=== PATIENT | female | born 1955 | race Caucasian/White ===

== ENCOUNTER → 2017-12-09 | Outpatient (CLI) | payer OTHER ==
[~2017-12-09] MED LIST: ADVIN10/60 INH; AMLO10TA2 PO; ASPI325T4 PO; ATOR-26 PO; CARV25TA2 PO; INSU3INJ3 SC; IPRA1AER2 INH; LISI-726 PO; METF-384 PO; NVLG SQ; OXGN; POTA-74 PO; PRD20 PO; TORS20TA3 PO
--- NOTE | 2017-12-09 09:36 | DIAGNOSTIC IMAGING REPORT ---
CT OF THE CHEST WITHOUT IV CONTRAST CLINICAL HISTORY: Follow-up pulmonary nodule. COMPARISON STUDY: Chest CT January 07, 2012 and August 27, 2017 and chest radiograph October 11, 2017. CT DOSE: 1199.27 mGy.cm TECHNIQUE: Axial images of the chest were obtained without IV contrast. Images were reviewed in the axial, sagittal, and coronal planes. IV contrast was not administered for this examination. A dose lowering technique was utilized adhering to the principles of ALARA. FINDINGS: No enlarged axillary, hilar or mediastinal lymph nodes are noted. The prominent lymph nodes shown on CT of August 27, 2017 have decreased in size. The heart is mildly enlarged. Extensive coronary artery calcification is present. Central airways are patent. There is no pneumothorax or pleural effusion. Bandlike right upper lobe opacities reflect atelectasis. There is mild upper lobe predominant paraseptal and centrilobular emphysema. The 1 cm right middle lobe opacity shown on exam of August 27, 2017 has resolved. Therefore, this was infectious or inflammatory. There are no suspicious pulmonary nodules. Bony thorax is unremarkable. Gallstones are noted within the gallbladder. There are bilateral adrenal adenomas. IMPRESSION: 1. Resolution of the previously described 1 cm right middle lobe opacity shown on CT of August 27, 2017. Therefore, this was infectious or inflammatory. 2. No suspicious findings within the chest. 3. Band-like right upper lobe opacities which favor atelectasis. 4. Moderate cardiomegaly. Extensive coronary artery calcification. 5. Mild emphysema. Electronically signed by: Francisco J Grayson M.D. 12/09/2017 9:35 AM Dictated Date/Time: 12/09/2017 9:22 AM
== END | disposition home or self-care (01) ==
LOC: C.CTS 09:07
PROVIDERS: ATTEND Physician Assistant
DX: R91.1 Solitary pulmonary nodule (principal); J43.9 Emphysema, unspecified; I25.10 Atherosclerotic heart disease of native coronary artery without angina pectoris; R93.8 Abnormal findings on diagnostic imaging of other specified body structures

== ENCOUNTER → 2017-12-09 | Outpatient (CLI) | payer OTHER ==
[2017-12-09 10:15] LABS: HEMATOCRIT 40.2 % (37-47); HEMOGLOBIN 13.7 g/dL (12.0-16.0)
--- NOTE | 2017-12-16 07:36 | CODING QUERY MEDICAL NECESSITY ---
CQTREATMENT RENDERED WITHOUT A DIAGNOSIS To promote full compliance with coding requirements relating to patient care, physician participation is requested in all cases of plumbing instructor uncertainty. Please assist us with providing a diagnosis/symptom for the test(s) below: A diagnosis/symptom was not documented on your Order. A valid diagnosis/symptom is required to bill all insurances. Please remember that we are unable to code a diagnosis of rule out, probable, possible, questionable, or suspected. Tests that require a diagnosis: DOS 12/09/17 HEMOGLOBIN TEST Provider Signature: Date: Thank you Ana Harris Userlike Live Chat Information Management Once completed, please kindly fax back to [phone] For questions please call [phone]
== END | disposition home or self-care (01) ==
LOC: C.LAB 09:29
PROVIDERS: ATTEND Nurse Practitioner Family
DX: G47.34 Idiopathic sleep related nonobstructive alveolar hypoventilation (principal); J96.02 Acute respiratory failure with hypercapnia; G47.33 Obstructive sleep apnea (adult) (pediatric)

== ENCOUNTER 2019-11-11 09:46 | Inpatient (IN) ==
[2019-11-11] MEDS ORDERED: CEFEPIME 2,000 MG/20 ML VIAL IV STA (10:33)
[2019-11-11] MEDS ORDERED: methylPREDNISolone 125 MG/2 ML VIAL IV STA (10:34)
[2019-11-11] MEDS ORDERED: MAGNESIUM SULFATE / D5W 1 GM/100 ML BAG IV SCH (10:36)
[2019-11-11] MEDS ORDERED: ACETAMINOPHEN 500 MG TAB PO STA (10:38)
[2019-11-11] MEDS ORDERED: ALBUTEROL HFA 8 GM INHALER INH ONE (10:43)
[2019-11-11] MEDS ORDERED: SODIUM CHLORIDE 0.9% 1000ML 1,000 ML IV SCH (10:45)
--- NOTE | 2019-11-11 10:52 | Emergency Department Note ---
Impression & Plan Acute exacerbation of chronic obstructive pulmonary disease (COPD), Fever, Hypomagnesemia ED Provider Note Provider: Jerome Hall MD DATE OF SERVICE: 11/11/2019 CHIEF COMPLAINT: Shortness of breath HISTORY OF PRESENT ILLNESS: Patient is a 64-year-old female with a past medical history of COPD, diabetes, hypertension presenting today stating that she woke this morning and she feels short of breath. Patient denies significant recent trauma of the last day or 2 as well as any fevers. Is febrile upon arrival. Denies take anything prior to arrival. Patient states she did use her morning medications and inhalers. Patient states that she believes she may have a COPD exacerbation. Denies recent travel or sick exposure. Denies significant pain at this time. Endorses a dry cough. Denies any nausea vomiting or abdominal discomfort at this time. Patient denies any new leg swelling. Patient denies any sensation abnormalities out of baseline at this time. Denies any focal weakness or headache. REVIEW OF SYSTEMS: A total of 10 review of systems was obtained and negative except as stated above in the HPI. PAST MEDICAL HISTORY: As noted above MEDICATIONS: Reviewed home medication list SOCIAL HISTORY: Patient is a smoker, lives at home PHYSICAL EXAM: GENERAL: alert and oriented in no acute distress on stretcher but appears fatigued Head: normocephalic and atraumatic EYES: No injection, discharge or icterus. NECK: Trachea midline. Supple. ENT: Mucous membranes pink and moist. Pharynx without erythema or exudate. LUNGS: Airway patent. No retractions. Breath sounds diminished with expiratory wheeze HEART: Regular rate and rhythm. No chest wall tenderness ABDOMEN: Soft and non-tender, without guarding or rebound. SKIN: Acyanotic, warm, dry, without rashes EXTREMITIES: Without swelling, tenderness or deformity NEUROLOGICAL: No focal deficits. No aphasia. No facial droop or slurred speech. EK bpm normal sinus rhythm with a right bundle branch block. No PVCs or PACs. No acute ST segment elevation is notable. Precordial and inferior T wave inversions are notable. Compared to October 11, 2017 the bundle branch and T wave inversions appear new. CONTINUOUS CARDIAC MONITORING: was ordered and showed a heart rate of 96 bpm in sinus tachycardia Patient's hypertension was referred to the hospitalist HOSPITAL COURSE: 1035 Patient was first seen and H&P performed. 1235 Patient reassessed and updated. Patient was resting in bed and just provided a urine sample. Discussed plan of care 1257 discussed with [facility] hospitalist team, Elissa Kenny PAC 1310 reassessed the patient updated on negative coronavirus testing, DuoNeb ordered. Given a Diet Coke. Patient's laboratory studies and imaging reviewed. Differential includes Viral syndrome, otitis, pharyngitis, pneumonia, influenza, meningitis, urinary tract infection, sepsis, bacteremia, COPD exacerbation, ACS, PE, gastrointestinal maladies as well as other pathologies. IMPRESSION/MEDICAL DECISION MAKING: Patient presents short of breath with a fever here. Expiratory wheeze appreci ated. Believe likely a COPD exacerbation with a fevers concerning for possible overlying infection. X-rays obtained to help look for pneumonia as well as basic laboratory studies, lactate, and culture. Given albuterol inhaler, magnesium, Solu-Medrol here as well as some IV fluid. Lower suspicion for acute CHF exacerbation at this time. Denies any numbness or tingling on my evaluation here. Doubt acute CVA. No travel or exposure but given fever respiratory symptoms and the current pandemic coronavirus testing was ordered. Maintained on airborne precautions here. Slight leukocytosis 11.9. VBG unremarkable. No signs of significant renal dysfunction, moderate hypomagnesemia noted. Lactate is elevated. Procalcitonin elevated. No significant LFT abnormality or platelet abnormality. Still awaiting a urine sample and the rapid COVID is pending. EKG with no bundle branch. Troponin is undetectable. Coronavirus test come back negative. Urinalysis not that impressive for infection. Do not see clear evidence of symptoms consistent with anaplasmosis. Concern for possible occult infection versus underlying pneumonia. I lower suspicion strep is acute PE. Given a DuoNeb treatment again already empirically given a dose of cefepime. Discussed with the hospitalist team for further monitoring observation in the inpatient setting. DIAGNOSIS: Fever, acute COPD exacerbation, hypomagnesemia DISPOSITION: Hospitalist will evaluate Patient was agreeable with this plan. Past Med/Surg History Family History (Updated 02/15/18 @ 09:02 by Amrita Swenson RN) Mother Family history of diabetes mellitus Sister Family history of diabetes mellitus Brother Family history of diabetes mellitus Social History Smoking Status: Current every day smoker Tobacco Type: Cigarettes Cigarettes Per Day: 20 CIG; Second Hand Exposure: No; Hx Alcohol Use: No Hx Substance Use: No Preferred Language: Yoruba Communication Ability: Effective Residential Door Unit Installer Required: No Beliefs That Will Affect Care: None Current Living Situation: Family Feels Safe at Home: Yes Allergies Allergies Allergy/AdvReac Type Severity Reaction Status Date / Time No Known Allergies Allergy NONE Verified 11/11/19 10:39 Home Meds Home Medications Medication Instructions Recorded Confirmed amlodipine 10 mg tablet 10 mg PO QAM 12/14/17 11/11/19 aspirin 325 mg tablet,delayed 325 mg PO QAM 12/14/17 11/11/19 release atorvastatin 80 mg tablet 80 mg PO HS 12/14/17 11/11/19 carvedilol 25 mg tablet 25 mg PO BID 12/14/17 11/11/19 insulin aspart U-100 100 unit/mL 30 units SQ QAM ml 12/14/17 11/11/19 subcutaneous solution insulin aspart U-100 100 unit/mL 30 units SQ QDD ml 12/14/17 11/11/19 subcutaneous solution ipratropium 20 mcg-albuterol 100 2 puffs INH Q4H PRN gm 12/14/17 11/11/19 mcg/actuation mist for inhalation lisinopril 20 mg tablet 40 mg PO QAM 12/14/17 11/11/19 metformin 1,000 mg tablet 1,000 mg PO BID 12/14/17 11/11/19 potassium chloride 10 mEq 10 meq PO QAM 12/14/17 11/11/19 capsule,extended release torsemide 20 mg tablet 20 mg PO QAM 12/14/17 11/11/19 insulin detemir U-100 100 unit/mL 26 units SQ HS ml 12/27/17 11/11/19 subcutaneous solution clopidogrel 75 mg tablet 75 mg PO QAM 03/06/19 11/11/19 ezetimibe 10 mg PO QAM 11/11/19 11/11/19 Previous Rx's Medication Instructions Recorded tiotropium 2.5 mcg-olodaterol 2.5 See Rx Instructions .ROUTE 09/20/19 mcg/actuation mist for inhalation .COMPLEX #1 inhaler Results & Data (ED) Vital Signs Vital Signs - 24 hr 11/11/19 09:53 11/11/19 10:47 11/11/19 10:48 Temperature 39.5 C H Temperature Source Oral Pulse Rate 106 H Pulse Rate [Left Apical] Pulse Rate from SpO2 Sensor Respiratory Rate 22 Respiratory Effort / Characteristics Spontaneous Blood Pressure 120/52 L Blood Pressure Mean 74 Pulse Oximetry 94 Oxygen Delivery Method Room Air Room Air Room Air Oxygen Flow Rate Sepsis Recent Fever Within 48 Hours Yes Sepsis New/Unexplained Change in Mental Status No Sepsis Action Taken by Nursing No Action Required 11/11/19 11:00 11/11/19 11:52 11/11/19 12:00 Temperature Temperature Source Pulse Rate 101 H Pulse Rate [Left Apical] Pulse Rate from SpO2 Sensor 101 H Respiratory Rate 15 Respiratory Effort / Characteristics Non-Labored Non-Labored Spontaneous Blood Pressure 148/69 H Blood Pressure Mean 90 Pulse Oximetry 90 92 88 L Oxygen Delivery Method Room Air Room Air Oxygen Flow Rate Sepsis Recent Fever Within 48 Hours Sepsis New/Unexplained Change in Mental Status Sepsis Action Taken by Nursing 11/11/19 12:02 11/11/19 12:53 11/11/19 13:00 Temperature 37.8 C H Temperature Source Oral Pulse Rate 97 H Pulse Rate [Left Apical] Pulse Rate from SpO2 Sensor 97 H Respiratory Rate 20 20 Respiratory Effort / Characteristics Non-Labored Spontaneous Blood Pressure 140/71 Blood Pressure Mean 101 Pulse Oximetry 91 98 Oxygen Delivery Method Nasal Cannula Oxygen Flow Rate 2 Sepsis Recent Fever Within 48 Hours Sepsis New/Unexplained Change in Mental Status Sepsis Action Taken by Nursing 11/11/19 13:01 11/11/19 13:29 Temperature Temperature Source Pulse Rate 94 H Pulse Rate [Left Apical] 88 Pulse Rate from SpO2 Sensor 95 H Respiratory Rate 23 18 Respiratory Effort / Characteristics Non-Labored Spontaneous Blood Pressure 125/62 Blood Pressure Mean 77 Pulse Oximetry 98 96 Oxygen Delivery Method Nasal Cannula Nasal Cannula Oxygen Flow Rate 2 2 Sepsis Recent Fever Within 48 Hours Sepsis New/Unexplained Change in Mental Status Sepsis Action Taken by Nursing Laboratory Data Result diagrams: 11/11/19 11:13 11/11/19 11:13 Lab Results 11/11/19 11/11/19 11/11/19 Range/Units 11:13 11:13 11:13 WBC 11.92 H (4.8-10.8) K/uL RBC 4.60 (4.2-5.4) M/uL Hgb 13.8 (12.0-16.0) g/dL Hct 40.3 (37-47) % MCV 87.6 (80-100) fL MCH 30.0 (25-34) pg MCHC 34.2 (32-36) g/dL RDW Std Deviation 48.5 H (36.4-46.3) fL RDW Coeff of Rasheeda 15.1 H (11.5-14.5) % Plt Count 222 (130-400) K/uL MPV 10.2 (7.4-10.4) fL Immature Gran % (Auto) 0.2 % Neut % (Auto) 89.8 % Lymph % (Auto) 3.2 % [place] % (Auto) 5.7 % Eos % (Auto) 0.8 % Baso % (Auto) 0.3 % Neut # (Auto) 10.72 H (1.4-6.5) K/uL Lymph # (Auto) 0.38 L (1.2-3.4) K/uL [place] # (Auto) 0.68 H (0.11-0.59) K/uL Eos # (Auto) 0.09 (0-0.5) K/uL Baso # (Auto) 0.03 (0-0.2) K/uL Immature Gran # (Auto) 0.02 (0.00-0.02) K/uL PT 11.7 (9.0-12.0) Seconds INR 1.1 (0.9-1.1) APTT 26.7 (21.0-31.0) Seconds PTT Ratio 1.0 VBG pH (7.36-7.41) VBG pCO2 (38-50) mmHg VBG pO2 mmHg VBG HCO3 mmol/L VBG O2 Saturation % VBG Base Excess mEq/L Barometric Pressure mm/Hg Sodium 135 L (136-145) mmol/L Potassium 3.6 (3.5-5.1) mmol/L Chloride 99 (98-107) mmol/L Carbon Dioxide 29 (21-32) mmol/L Anion Gap 7.0 (3-11) BUN 13 (7-18) mg/dl Creatinine 0.77 (0.6-1.2) mg/dl Est Cr Clr Drug Dosing 109.8 ml/min Est GFR ( Amer) 95.9 Est GFR (Non-Af Amer) 82.8 BUN/Creatinine Ratio 16.2 (10-20) Glucose 139 H (70-99) mg/dl Lactate (0.4-2.0) mmol/L Calcium 8.4 L (8.5-10.1) mg/dl Magnesium 1.4 L (1.8-2.4) mg/dl Total Bilirubin 0.6 (0.2-1) mg/dl AST 6 L (15-37) U/L ALT 24 (12-78) U/L Alkaline Phosphatase 115 (45-117) U/L Troponin I < 0.015 (0-0.045) ng/ml Total Protein 7.3 (6.4-8.2) gm/dl Albumin 3.4 (3.4-5.0) gm/dl Globulin 3.9 (2.5-4.0) gm/dl Albumin/Globulin Ratio 0.9 (0.9-2) Procalcitonin (0-0.5) ng/ml TSH 1.940 (0.300-4.500) uIu/ml Urine Color Urine Appearance (Clear) Urine pH (4.5-7.5) Ur Specific [place] (1.000-1.030) Urine Protein (Negative) Urine Glucose (UA) (Negative) Urine Ketones (Negative) Urine Blood (Negative) Urine Nitrite (Negative) Urine Bilirubin (Negative) Urine Urobilinogen (Negative) Ur Leukocyte Esterase (Negative) Urine WBC (Auto) (0-5) /hpf Urine RBC (Auto) (0-4) /hpf U Hyaline Cast (Auto) (0-5) /lpf U Epithel Cells (Auto) (0-5) /lpf Urine Bacteria (Auto) (Negative) COVID-19 PCR (Negative) SARS-CoV-2 RNA (RT-PCR) 11/11/19 11/11/19 11/11/19 Range/Units 11:13 11:13 11:13 WBC (4.8-10.8) K/uL RBC (4.2-5.4) M/uL Hgb (12.0-16.0) g/dL Hct (37-47) % MCV (80-100) fL MCH (25-34) pg MCHC (32-36) g/dL RDW Std Deviation (36.4-46.3) fL RDW Coeff of Rasheeda (11.5-14.5) % Plt Count (130-400) K/uL MPV (7.4-10.4) fL Immature Gran % (Auto) % Neut % (Auto) % Lymph % (Auto) % [place] % (Auto) % Eos % (Auto) % Baso % (Auto) % Neut # (Auto) (1.4-6.5) K/uL Lymph # (Auto) (1.2-3.4) K/uL [place] # (Auto) (0.11-0.59) K/uL Eos # (Auto) (0-0.5) K/uL Baso # (Auto) (0-0.2) K/uL Immature Gran # (Auto) (0.00-0.02) K/uL PT (9.0-12.0) Seconds INR (0.9-1.1) APTT (21.0-31.0) Seconds PTT Ratio VBG pH 7.44 H (7.36-7.41) VBG pCO2 44 (38-50) mmHg VBG pO2 43 mmHg VBG HCO3 30 mmol/L VBG O2 Saturation 77.0 % VBG Base Excess 4.8 mEq/L Barometric Pressure 735.3 mm/Hg Sodium (136-145) mmol/L Potassium (3.5-5.1) mmol/L Chloride (98-107) mmol/L Carbon Dioxide (21-32) mmol/L Anion Gap (3-11) BUN (7-18) mg/dl Creatinine (0.6-1.2) mg/dl Est Cr Clr Drug Dosing ml/min Est GFR ( Amer) Est GFR (Non-Af Amer) BUN/Creatinine Ratio (10-20) Glucose (70-99) mg/dl Lactate 2.3 H* (0.4-2.0) mmol/L Calcium (8.5-10.1) mg/dl Magnesium (1.8-2.4) mg/dl Total Bilirubin (0.2-1) mg/dl AST (15-37) U/L ALT (12-78) U/L Alkaline Phosphatase (45-117) U/L Troponin I (0-0.045) ng/ml Total Protein (6.4-8.2) gm/dl Albumin (3.4-5.0) gm/dl Globulin (2.5-4.0) gm/dl Albumin/Globulin Ratio (0.9-2) Procalcitonin 1.45 H (0-0.5) ng/ml TSH (0.300-4.500) uIu/ml Urine Color Urine Appearance (Clear) Urine pH (4.5-7.5) Ur Specific [place] (1.000-1.030) Urine Protein (Negative) Urine Glucose (UA) (Negative) Urine Ketones (Negative) Urine Blood (Negative) Urine Nitrite (Negative) Urine Bilirubin (Negative) Urine Urobilinogen (Negative) Ur Leukocyte Esterase (Negative) Urine WBC (Auto) (0-5) /hpf Urine RBC (Auto) (0-4) /hpf U Hyaline Cast (Auto) (0-5) /lpf U Epithel Cells (Auto) (0-5) /lpf Urine Bacteria (Auto) (Negative) COVID-19 PCR (Negative) SARS-CoV-2 RNA (RT-PCR) 11/11/19 11/11/19 11/11/19 Range/Units 11:49 11:49 12:45 WBC (4.8-10.8) K/uL RBC (4.2-5.4) M/uL Hgb (12.0-16.0) g/dL Hct (37-47) % MCV (80-100) fL MCH (25-34) pg MCHC (32-36) g/dL RDW Std Deviation (36.4-46.3) fL RDW Coeff of Rasheeda (11.5-14.5) % Plt Count (130-400) K/uL MPV (7.4-10.4) fL Immature Gran % (Auto) % Neut % (Auto) % Lymph % (Auto) % [place] % (Auto) % Eos % (Auto) % Baso % (Auto) % Neut # (Auto) (1.4-6.5) K/uL Lymph # (Auto) (1.2-3.4) K/uL [place] # (Auto) (0.11-0.59) K/uL Eos # (Auto) (0-0.5) K/uL Baso # (Auto) (0-0.2) K/uL Immature Gran # (Auto) (0.00-0.02) K/uL PT (9.0-12.0) Seconds INR (0.9-1.1) APTT (21.0-31.0) Seconds PTT Ratio VBG pH (7.36-7.41) VBG pCO2 (38-50) mmHg VBG pO2 mmHg VBG HCO3 mmol/L VBG O2 Saturation % VBG Base Excess mEq/L Barometric Pressure mm/Hg Sodium (136-145) mmol/L Potassium (3.5-5.1) mmol/L Chloride (98-107) mmol/L Carbon Dioxide (21-32) mmol/L Anion Gap (3-11) BUN (7-18) mg/dl Creatinine (0.6-1.2) mg/dl Est Cr Clr Drug Dosing ml/min Est GFR ( Amer) Est GFR (Non-Af Amer) BUN/Creatinine Ratio (10-20) Glucose (70-99) mg/dl Lactate (0.4-2.0) mmol/L Calcium (8.5-10.1) mg/dl Magnesium (1.8-2.4) mg/dl Total Bilirubin (0.2-1) mg/dl AST (15-37) U/L ALT (12-78) U/L Alkaline Phosphatase (45-117) U/L Troponin I (0-0.045) ng/ml Total Protein (6.4-8.2) gm/dl Albumin (3.4-5.0) gm/dl Globulin (2.5-4.0) gm/dl Albumin/Globulin Ratio (0.9-2) Procalcitonin (0-0.5) ng/ml TSH (0.300-4.500) uIu/ml Urine Color Yellow Urine Appearance Clear (Clear) Urine pH 5.0 (4.5-7.5) Ur Specific [place] 1.013 (1.000-1.030) Urine Protein Negative (Negative) Urine Glucose (UA) Negative (Negative) Urine Ketones Negative (Negative) Urine Blood Negative (Negative) Urine Nitrite Negative (Negative) Urine Bilirubin Negative (Negative) Urine Urobilinogen Negative (Negative) Ur Leukocyte Esterase Trace H (Negative) Urine WBC (Auto) 5-10 H (0-5) /hpf Urine RBC (Auto) 5-10 H (0-4) /hpf U Hyaline Cast (Auto) 1-5 (0-5) /lpf U Epithel Cells (Auto) 20-30 H (0-5) /lpf Urine Bacteria (Auto) 1+ H (Negative) COVID-19 PCR NEGATIVE (Negative) SARS-CoV-2 RNA (RT-PCR) Cancelled Administered Medications Lactated Ringer's (Lr) 1,000 mls @ 999 mls/hr IV .Q1H1M ONE Stop: 11/11/19 13:47 Last Admin: 11/11/19 13:23 Dose: 999 mls/hr Documented by: [id number] Discontinued Medications Acetaminophen (Tylenol) 1,000 mg PO NOW STA Stop: 11/11/19 10:39 Last Admin: 11/11/19 11:35 Dose: 1,000 mg Documented by: [id number] Albuterol (Ventolin Hfa) 6 puffs INH NOW ONE Stop: 11/11/19 10:44 Last Admin: 11/11/19 11:37 Dose: 6 puffs Documented by: [id number] Albuterol (Duoneb) 12 ml NEB ONE ONE Stop: 11/11/19 13:15 Last Admin: 11/11/19 13:26 Dose: 12 ml Documented by: [id number] Sodium Chloride (Nss 1000ml) 1,000 mls @ 999 mls/hr IV .Q1H1M [place] Stop: 11/11/19 11:33 Last Infusion: 11/11/19 13:10 Dose: 0 mls/hr Documented by: [id number] Admin: 11/11/19 11:37 Dose: 999 mls/hr Documented by: [id number] Cefepime HCl (Maxipime) 2,000 mg in 20 mls @ 5 mls/min IV NOW STA; Protocol Stop: 11/11/19 10:36 Last Admin: 11/11/19 11:41 Dose: 5 mls/min Documented by: [id number] Magnesium Sulfate/Dextrose (Magnesium Sulfate / D5w) 1 gm in 100 mls @ 400 mls/hr IV Q15M [place] Stop: 11/11/19 10:50 Last Infusion: 11/11/19 12:51 Dose: 0 mls/hr Documented by: [id number] Admin: 11/11/19 11:41 Dose: 400 mls/hr Documented by: [id number] Magnesium Sulfate/Dextrose (Magnesium Sulfate / D5w) 1 gm in 100 mls @ 100 mls/hr IV NOW STA Stop: 11/11/19 13:03 Last Infusion: 11/11/19 13:02 Dose: 0 mls/hr Documented by: [id number] Admin: 11/11/19 12:52 Dose: 100 mls/hr Documented by: [id number] Methylprednisolone (Solumedrol) 60 mg IV NOW STA Stop: 11/11/19 10:35 Last Admin: 11/11/19 11:40 Dose: 60 mg Documented by: [id number] Discharge Plan Visit Data Chief Complaint: Shortness of Breath/Dyspnea Stated Complaint: SOB, LEG NUMBESS, COUGH ED Provider: Jerome Hall Discharge Problem: Acute exacerbation of chronic obstructive pulmonary disease (COPD), Fever, Hypomagnesemia Patient Disposition: Being Evaluated by Hospitalist Condition: Fair Forms Stand Alone Forms: [facility] [place] Prescriptions Prescriptions: No Action amlodipine 10 mg tablet 10 mg PO QAM RF: 0 aspirin 325 mg tablet,delayed release (DR/EC) 325 mg PO QAM RF: 0 atorvastatin 80 mg tablet 80 mg PO HS RF: 0 carvedilol 25 mg tablet 25 mg PO BID RF: 0 insulin aspart U-100 [Novolog U-100 Insulin aspart] 100 unit/mL solution 30 units SQ QAM RF: 0 insulin aspart U-100 [Novolog U-100 Insulin aspart] 100 unit/mL solution 30 units SQ QDD RF: 0 ipratropium-albuterol [Combivent Respimat] 20-100 mcg/actuation mist 2 puffs INH Q4H PRN (Reason: shortness of breath) RF: 0 lisinopril 20 mg tablet 40 mg PO QAM RF: 0 metformin 1,000 mg tablet 1,000 mg PO BID RF: 0 potassium chloride 10 mEq capsule, extended release 10 meq PO QAM RF: 0 torsemide 20 mg tablet 20 mg PO QAM RF: 0 insulin detemir U-100 [Levemir U-100 Insulin] 100 unit/mL solution 26 units SQ HS RF: 0 Stiolto Respimat 2.5-2.5 mcg/actuation mist See Rx Instructions .ROUTE .COMPLEX Qty: 1 RF: 5 clopidogrel [Plavix] 75 mg tablet 75 mg PO QAM RF: 0 ezetimibe 10 mg tablet 10 mg PO QAM RF: 0 Referrals Referrals: Jeremie Mcclellan DO [Primary Care Provider] - Discharge Problem: Fever Qualifiers: Fever type: unspecified Qualified Code(s): R50.9 - Fever, unspecified
[2019-11-11 11:31] LABS: Base Excess VBG 4.8 mEq/L; Hematocrit (blood only) 40.3 % (37-47); Hemoglobin 13.8 g/dL (12.0-16.0); Mean Corpuscular Hgb Conc 34.2 g/dL (32-36); Mean Corpuscular Volume 87.6 fL (80-100); Mean Platelet Volume 10.2 fL (7.4-10.4); Platelet Count 222 K/uL (130-400); RDW Coefficient of Variation 15.1 % (11.5-14.5); RDW Standard Deviation 48.5 fL (36.4-46.3); White Blood Count 11.92 K/uL (4.8-10.8); pH VBG 7.44 (7.36-7.41)
[2019-11-11 11:42] LABS: INR 1.1 (0.9-1.1); Partial Thromboplastin Time 26.7 Seconds (21.0-31.0); Prothrombin Time 11.7 Seconds (9.0-12.0)
[2019-11-11 11:54] LABS: Alanine Aminotransferase 24 U/L (12-78); Albumin Level 3.4 gm/dl (3.4-5.0); Aspartate Aminotransferase 6 U/L (15-37); BUN Creatinine Ratio 16.2 (10-20); Blood Urea Nitrogen 13 mg/dl (7-18); Calcium 8.4 mg/dl (8.5-10.1); Carbon Dioxide 29 mmol/L (21-32); Chloride 99 mmol/L (98-107); Creatinine Clr Calc Pharmacy 109.8 ml/min; Est GFR (African American) 95.9; Est GFR (Non-African American) 82.8; Glucose 139 mg/dl (70-99); Magnesium 1.4 mg/dl (1.8-2.4); Potassium 3.6 mmol/L (3.5-5.1); Sodium 135 mmol/L (136-145)
[2019-11-11 12:04] LABS: Albumin Globulin Ratio 0.9 (0.9-2); Alkaline Phosphatase 115 U/L (45-117); Bilirubin,Total 0.6 mg/dl (0.2-1); Globulin 3.9 gm/dl (2.5-4.0); Total Protein 7.3 gm/dl (6.4-8.2); Troponin I < 0.015 ng/ml (0-0.045)
[2019-11-11] MEDS ORDERED: MAGNESIUM SULFATE / D5W 1 GM/100 ML BAG IV STA (12:04)
[2019-11-11 12:16] LABS: Basophils # (auto) 0.03 K/uL (0-0.2); Basophils % (auto) 0.3 %; Eosinophils # (auto) 0.09 K/uL (0-0.5); Eosinophils % (auto) 0.8 %; Immature Granulocytes # (auto) 0.02 K/uL (0.00-0.02); Immature Granulocytes % (auto) 0.2 %; Lymphocytes # (auto) 0.38 K/uL (1.2-3.4); Lymphocytes % (auto) 3.2 %; Monocytes # (auto) 0.68 K/uL (0.11-0.59); Monocytes % (auto) 5.7 %; Neutrophils # (auto) 10.72 K/uL (1.4-6.5); Neutrophils % (auto) 89.8 %
--- NOTE | 2019-11-11 12:19 | XRay Report ---
XR chest 1V portable HISTORY: 64 years-old Female SEPSIS acute sepsis with shortness of breath COMPARISON: Chest CT 11/22/2018 TECHNIQUE: Portable AP view of the chest FINDINGS: Cardiac silhouette is mildly enlarged, unchanged. No pneumothorax, large pleural effusion or overt pu lmonary edema. Ill-defined bibasilar opacities are likely secondary to summation density/atelectasis. Degenerative changes of the shoulders and spine. IMPRESSION: Cardiomegaly without acute process. ACT 112: Negative or not required by law. The above report was generated using voice recognition software. It may contain grammatical, syntax o r spelling errors. Electronically signed by: Eliezer Lozano M.D. 11/11/2019 12:18 PM
[2019-11-11] MEDS ORDERED: LACTATED RINGER'S 1,000 ML IV ONE (12:47)
[2019-11-11 13:07] LABS: Appearance Urine Clear (Clear); Bacteria Urine Automated 1+ (Negative); Bilirubin Urine Negative (Negative); Blood Urine Negative (Negative); Color Urine Yellow; Epithelial Cell Urine Auto 20-30 /lpf (0-5); Glucose Urine UA Negative (Negative); Ketones Urine Negative (Negative); Leukocyte Esterase Urine Trace (Negative); Nitrite Urine Negative (Negative); Protein Urine Negative (Negative); Specific Gravity Urine 1.013 (1.000-1.030); Urobilinogen Urine Negative (Negative)
[2019-11-11] MEDS ORDERED: ALBUT/IPRATROP 3MG/0.5MG NEB 3 ML VIAL NEB ONE (13:14)
[2019-11-11] MEDS ORDERED: OPTIRAY 320 125ml IV PRN (15:06)
--- NOTE | 2019-11-11 15:13 | History & Physical Report ---
Date of Service November 11, 2019 Assessment & Plan (1) Sepsis: (2) Acute exacerbation of chronic obstructive pulmonary disease (COPD): This is a 64-year-old female with PMH of COPD with nocturnal hypoxemia, tobacco use disorder, moderate JEIMY, chronic diastolic heart failure, type 2 diabetes on insulin, dyslipidemia and other medical problems listed below who presents with worsening shortness of breath starting this morning and was found to meet sepsis criteria and have acute exacerbation of COPD. -Febrile at 39.5 with heart rate 106, leukocytosis of 11.9, lactic acid 2.3, procalcitonin 1.45 meeting sepsis criteria -No clear source of infection on CXR, UA. COVID-19 PCR negative. Will cover with empiric abx for now with ill-defined basilar opacities on CXR representing infxn vs viral URI exacerbation of COPD -Considered PE due to clinical presentation but CTA chest negative for PE. Evidence of extensive coronary artery calcifications -Follow blood cultures. Continue IV Solu-medrol 40mg Q8H, Duonebs, home inhalers, supplemental O2 as needed -Received 2L NSS in ED. Will not continue IV fluids due to stable BP at 126/62 and underlying heart failure -MRSA swab pending, trend lactate (3) Nocturnal hypoxemia: (4) Sleep apnea: BiPAP with 7 L O2 at bedtime (5) Hypomagnesemia: Given 2 g magnesium in ED. We will give an additional 2 g. Repeat mag in a.m. (6) Left carotid artery stenosis: Follows with [facility] [place] [facility] [place]. Repeat carotid doppler scheduled for 11/2019. Continue aspirin and plavix (7) Chronic diastolic (congestive) heart failure: Appears euvolemic. Continue torsemide, Coreg, Lisinopril (8) Diabetes mellitus, type 2: A1c of 8.1 in September 2019 -Hold home agents -Basal/bolus insulin per protocol while in-patient -BSG AC HS (9) Hypertension: Continue Coreg, Amlodipine and Lisinopril (10) Tobacco use disorder: Cessation encouraged (11) Hyperlipidemia: Continue statin DVT Ppx: SQ heparin Code status: FULL PCP: Eleuterio Dispo: Admitted to PCU. Plan to return home once medically stable. Patient seen in collaboration with Dr. Barron. Please see addendum. History of Present Illness Chief Complaint: Shortness of breath Primary Care Provider: Jeremie Mcclellan, DO This is a 64-year-old female with PMH of COPD with nocturnal hypoxemia, tobacco use disorder, moderate JEIMY, chronic diastolic heart failure, type 2 diabetes on insulin, dyslipidemia and other medical problems listed below who presents with worsening shortness of breath starting this morning. Patient states she has shortness of breath at baseline due to COPD and JEIMY but felt significantly more short of breath when she woke up this morning. Endorses dry cough and wheezing, which are close to her baseline, along with some lower extremity swelling. Has been taking all medications as scheduled. Denies any sick contacts, recent travel or known COVID exposure. Denies any fever or chills, although found to be febrile at 39.5 upon arrival. Denies any lightheadedness, headache, visual changes, chest pain, palpitations, hemoptysis, abdominal pain, nausea, vomiting, dysuria, diarrhea or constipation. No pain in lower extremities or history of blood clots. Allergies Allergy/AdvReac Type Severity Reaction Status Date / Time No Known Allergies Allergy NONE Verified 11/11/19 10:39 Home Medications Home Medications Medication Instructions Recorded Confirmed Type aspirin 325 mg tablet,delayed 325 mg PO QAM 12/14/17 11/11/19 History release atorvastatin 80 mg tablet 80 mg PO HS 12/14/17 11/11/19 History carvedilol 25 mg tablet 37.5 mg PO BID 12/14/17 11/11/19 History insulin aspart U-100 100 unit/mL 30 units SQ QAM ml 12/14/17 11/11/19 History subcutaneous solution insulin aspart U-100 100 unit/mL 30 units SQ QDD ml 12/14/17 11/11/19 History subcutaneous solution ipratropium 20 mcg-albuterol 100 2 puffs INH Q4H PRN gm 12/14/17 11/11/19 History mcg/actuation mist for inhalation lisinopril 20 mg tablet 40 mg PO QAM 12/14/17 11/11/19 History metformin 1,000 mg tablet 1,000 mg PO BID 12/14/17 11/11/19 History potassium chloride 10 mEq 10 meq PO QAM 12/14/17 11/11/19 History capsule,extended release torsemide 20 mg tablet 20 mg PO QAM 12/14/17 11/11/19 History insulin detemir U-100 100 unit/mL 26 units SQ HS 12/27/17 11/11/19 History subcutaneous solution clopidogrel 75 mg tablet 75 mg PO QAM 03/06/19 11/11/19 History tiotropium 2.5 mcg-olodaterol 2.5 See Rx Instructions .ROUTE 09/20/19 11/11/19 Rx mcg/actuation mist for inhalation .COMPLEX #1 inhaler amlodipine 5 mg PO DAILY 11/11/19 11/11/19 History ezetimibe 10 mg PO QAM 11/11/19 11/11/19 History Past Med/Surg History Medical History (Updated 11/11/19 @ 16:02 by Elissa Kenny PA-C) Chronic diastolic (congestive) heart failure Diabetes mellitus, type 2 Hyperlipidemia (Chronic) Hypertension Left carotid artery stenosis Nocturnal hypoxemia Osteoarthritis Sleep apnea Tobacco use disorder Surgical History History of bilateral carpal tunnel release (Deleted) History of (Resolved) History of carpal tunnel release RT/LEFT History of cataract surgery RT/LEFT History of section History of colonoscopy History of tooth extraction Family History Mother Family history of diabetes mellitus Sister Family history of diabetes mellitus Brother Family history of diabetes mellitus Social History Smoking Status: Current every day smoker Tobacco Type: Cigarettes Cigarettes Per Day: 1 pack; Second Hand Exposure: No; Do You Dip or Chew Tobacco: No; Tobacco Cessation Education Requested by Patient: No Hx Alcohol Use: No Hx Substance Use: No Preferred Language: Prydeinig Communication Ability: Effective Director Of Ancillary Services Required: No Beliefs That Will Affect Care: None Current Living Situation: Family Current Living Situation Comment: Lived in [facility], with two daughters Other Information That Helps Us Care for You: Yes Feels Safe at Home: Yes Safety Concerns: Feels Safe At This Time Review of Systems Review of Systems: At least ten systems reviewed and negative except as noted in the HPI. Physical Exam Physical Exam: General Appearance: WD/WN, vitals as above, NAD, sitting up in bed during neb treatment, morbidly obese, conversing easily Head: normocephalic, atraumatic Eyes: normal inspection, PERRL, conjunctivae normal, anicteric sclerae ENT: external ear and nose normal, oropharynx normal Neck: trachea midline, no thyromegaly, normal visual inspection Respiratory: normal respiratory effort, diminished lung sounds throughout, scattered expiratory wheezing, no rales. No accessory muscle use Cardiovascular: regular rate, rhythm, no murmur appreciated, normal peripheral pulses, pedal edema. Vessels: no JVD Chest: normal inspection of chest Abdomen/GI: normal bowel sounds, soft, nontender, no hepatosplenomegaly Extremities/Musculoskeletal: venous stasis hyperpigmentation, no cyanosis or clubbing, extremities motor strength 5/5 Neurologic: PERRL, EOMI, accommodation nl, no face palsy, no dysarthria, CN's II-XI intact bilaterally and moves all extremities Psychiatric: A+Ox3, euthymic affect Skin: no rashes, normal color, warm/dry. +healing lesion R anterior tibial surface Results & Data Results & Data ([facility]) Vital Signs (Past 12 Hours) Vital Signs Temp Pulse Pulse Resp BP Pulse Ox 11/11/19 14:50 95 H 22 126/62 99 11/11/19 14:00 22 99 11/11/19 13:31 95 H 22 126/62 99 11/11/19 13:29 88 18 96 11/11/19 13:01 94 H 23 125/62 98 11/11/19 13:00 20 98 11/11/19 12:53 37.8 C H 11/11/19 12:02 97 H 20 140/71 91 11/11/19 12:00 88 L 11/11/19 11:52 101 H 15 148/69 H 92 11/11/19 11:00 90 11/11/19 09:53 39.5 C H 106 H 22 120/52 L 94 Laboratory Results Short CBC 11/11/19 Range/Units 11:13 WBC 11.92 H (4.8-10.8) K/uL Hgb 13.8 (12.0-16.0) g/dL Hct 40.3 (37-47) % Plt Count 222 (130-400) K/uL BMP 11/11/19 11:13 Sodium 135 L Potassium 3.6 Chloride 99 Carbon Dioxide 29 BUN 13 Creatinine 0.77 Glucose 139 H Calcium 8.4 L Cardiac Enzymes 11/11/19 Range/Units 11:13 Troponin I < 0.015 (0-0.045) ng/ml Liver Function 11/11/19 Range/Units 11:13 Total Bilirubin 0.6 (0.2-1) mg/dl AST 6 L (15-37) U/L ALT 24 (12-78) U/L Alkaline Phosphatase 115 (45-117) U/L Albumin 3.4 (3.4-5.0) gm/dl Urine 11/11/19 Range/Units 12:45 Urine Color Yellow Urine Appearance Clear (Clear) Urine pH 5.0 (4.5-7.5) Ur Specific [place] 1.013 (1.000-1.030) Urine Protein Negative (Negative) Urine Glucose (UA) Negative (Negative) Diagnostic Findings CXR: IMPRESSION: Cardiomegaly without acute process. CTA chest: IMPRESSION: 1. No acute intrathoracic abnormality or evidence of pulmonary thromboembolic disease. 2. Cardiomegaly with extensive coronary artery calcifications. 3. Mild emphysema. Code Status & VTE Plan VTE Prophylaxis Plan VTE Prophylaxis will be ordered: Yes Supervising Physician Co-Signing Physician Notes I have seen and examined the patient and have discussed the case with the provider above. I agree with the assessment and plan as stated. 64 yo F smoker with known COPD presents with fever and worsening shortness of breath "that just started this morning." Denies feeling poorly prior to this, denies coughing, or recent sputum changes. Sedentary lifestyle; reports being on the computer for most of the day. Reports last COPD exacerbation was over 2 years ago. My physical exam was performed after breathing treatments, steroids and antibiotics had been started. She was obese, and not in distress. She had no conversational dyspnea and was not exhibiting increased respiratory effort. Lungs were clear to auscultation. Cardiac exam revealed S1/2 heard without m/g/r and no peripheral edema was present. She was euvolemic on exam. Her chest CT was negative for PE or infiltrates. Coronary calcifications were noted, which should be addressed by her PCP as outpatient. Agree with plan above including steroids, breathing treatments and broad spectrum antibiotics in the setting of possible developing sepsis, pending culture results (urine and blood) and clinical improvement. She denies all UTI symptoms. DO Anderson
--- NOTE | 2019-11-11 15:20 | CT Scan Report ---
CT angio chest PE protocol CT DOSE: 930.52 mGy.cm HISTORY: 64 years-old Female with PE. Acute shortness of breath TECHNIQUE: Multiple CTA images of the chest were obtained after the intravenous administration of 119 ml Optiray 320. Coronal and sagittal MIPS were obtained from the axial data set and were submitted for review. All measurements were obtained according to NASCET criteria. A dose lowering technique w as utilized adhering to the principles of ALARA. COMPARISON: Chest radiograph of same day, chest CT 12/09/2017 FINDINGS: CTA: Mild cardiomegaly.. 7 mm lymph node seen within the epicardial tissues anterior to the right atrium. Extensive coronary artery calcifications. Mural fibrofatty changes of the left ventricular apex sugge st prior myocardial infarction. Mixed plaque of the thoracic aorta without aneurysm or dissection. Th e pulmonary artery is opacified to level of the segmental branches. No filling defects identified to suggest thromboembolic disease. CT CHEST: Unremarkable thyroid. Mildly enlarged subcarinal lymph nodes, likely reactive. No pneumothorax, pleur al effusion or overt pulmonary edema. Mild emphysema with bronchial wall thickening. Mild bibasilar s ubsegmental atelectasis. There are no suspicious pulmonary nodules or masses identified. Central airw ays are patent. Bilateral adrenal adenomas redemonstrated, right greater than left. Soft tissues are within normal li mits. Degenerative changes of the shoulders and spine. IMPRESSION: 1. No acute intrathoracic abnormality or evidence of pulmonary thromboembolic disease. 2. Cardiomegaly with extensive coronary artery calcifications. 3. Mild emphysema. ACT 112: Negative or not required by law. The above report was generated using voice recognition software. It may contain grammatical, syntax o r spelling errors. Electronically signed by: Eliezer Lozano M.D. 11/11/2019 3:19 PM
[2019-11-11] MEDS ORDERED: ACETAMINOPHEN 325 MG TAB PO PRN (15:32)
[2019-11-11] MEDS ORDERED: POLYETHYLENE (MIRALAX) 17 GM PACK PO PRN (15:32)
[2019-11-11] MEDS ORDERED: GLUCOSE 40% GEL 15 GM TUBE PO PRN (15:32)
[2019-11-11] MEDS ORDERED: GLUCOSE 10 TABS/TUBE PO PRN (15:32)
[2019-11-11] MEDS ORDERED: CARBOHYDRATES FOR HYPOGLYCEMIA PO PRN (15:32)
[2019-11-11] MEDS ORDERED: DEXTROSE 50% 50 ML SYRINGE IV PRN (15:32)
[2019-11-11] MEDS ORDERED: GLUCAGON FOR INJ 1 MG VIAL SQ PRN (15:32)
[2019-11-11] MEDS ORDERED: CEFEPIME CONSULT ACTIVE PRN (15:50)
[2019-11-11] MEDS: ALBUT/IPRATROP 3MG/0.5MG NEB 3 ML VIAL NEB SCH ×3 (15:58→23:13)
[2019-11-11] MEDS: MAGNESIUM SULFATE / D5W 1 GM/100 ML BAG IV SCH ×2 (16:08→17:11)
[2019-11-11] MEDS ORDERED: PNEUMOCOCCAL ADMINISTRATION CHARGE ONE (16:38)
[2019-11-11] MEDS ORDERED: PNEUMOCOCCAL POLYSACCHARIDES 25 MCG/0.5 ML VIAL/SYR IM ONE (16:38)
[2019-11-11] MEDS: INSULIN ASPART 100 UNITS/ML 3 ML PEN SC SCH ×2 (17:12→21:05)
[2019-11-11] MEDS: methylPREDNISolone 40 MG in SYRINGE 0 ML IV SCH (19:30)
[2019-11-11] MEDS: CEFEPIME 2,000 MG in SYRINGE 7.5 ML IV SCH (19:31)
[2019-11-11] MEDS: ATORVASTATIN 40 MG TAB PO SCH (20:59)
[2019-11-11] MEDS ORDERED: ENOXAPARIN INJ 40 MG/0.4 ML SYR SQ SCH (21:00)
[2019-11-11] MEDS: carvediloL 25 MG TAB PO SCH (21:00)
[2019-11-11] MEDS ORDERED: INSULIN GLARGINE SOLOSTAR 100 UNITS/ML 3 ML PEN SC SCH (21:00)
[2019-11-11] MEDS: HEPARIN SOD 5,000 UNIT/0.5 ML VIAL SQ SCH (21:03)
[2019-11-12] MEDS: ALBUT/IPRATROP 3MG/0.5MG NEB 3 ML VIAL NEB SCH ×3 (03:16→11:29)
[2019-11-12] MEDS: CEFEPIME 2,000 MG in SYRINGE 7.5 ML IV SCH ×3 (04:00→19:51)
[2019-11-12] MEDS: methylPREDNISolone 40 MG in SYRINGE 0 ML IV SCH (04:00)
[2019-11-12] MEDS: HEPARIN SOD 5,000 UNIT/0.5 ML VIAL SQ SCH ×3 (06:22→21:15)
[2019-11-12] MEDS: UMECLIDINIUM/VILANTEROL 62.5/25MCG 7 PUFFS/INHALER INH SCH (08:26)
[2019-11-12] MEDS: carvediloL 25 MG TAB PO SCH ×2 (08:31→21:16)
[2019-11-12] MEDS: ASPIRIN 325 MG ECTAB PO SCH (08:31)
[2019-11-12] MEDS: INSULIN ASPART 100 UNITS/ML 3 ML PEN SC SCH ×4 (08:32→21:11)
[2019-11-12] MEDS: POTASSIUM CHLORIDE 10 MEQ TABCR PO SCH (08:34)
[2019-11-12] MEDS: CLOPIDOGREL BISULFATE 75 MG TAB PO SCH (08:34)
[2019-11-12] MEDS: AMLODIPINE BESYLATE 5 MG TAB PO SCH (08:34)
[2019-11-12] MEDS: TORSEMIDE 20 MG TAB PO SCH (08:34)
[2019-11-12] MEDS: lisinopriL 40 MG TAB PO SCH (08:34)
[2019-11-12] MEDS: EZETIMIBE 10 MG TABLET PO SCH (08:34)
[2019-11-12] MEDS ORDERED: INSULIN GLARGINE SOLOSTAR 100 UNITS/ML 3 ML PEN SC SCH (09:00)
[2019-11-12 10:27] LABS: Hematocrit (blood only) 39.4 % (37-47); Hemoglobin 13.5 g/dL (12.0-16.0); Mean Corpuscular Hemoglobin 30.3 pg (25-34); Mean Corpuscular Hgb Conc 34.3 g/dL (32-36); Mean Corpuscular Volume 88.5 fL (80-100); Mean Platelet Volume 10.4 fL (7.4-10.4); Platelet Count 241 K/uL (130-400); RDW Coefficient of Variation 15.1 % (11.5-14.5); RDW Standard Deviation 48.7 fL (36.4-46.3); Red Blood Count 4.45 M/uL (4.2-5.4); White Blood Count 16.96 K/uL (4.8-10.8)
[2019-11-12 11:10] LABS: BUN Creatinine Ratio 17.1 (10-20); Calcium 8.5 mg/dl (8.5-10.1); Creatinine Clr Calc Pharmacy 99.9 ml/min; Est GFR (African American) 87.6; Est GFR (Non-African American) 75.6; Magnesium 2.4 mg/dl (1.8-2.4)
[2019-11-12 11:41] LABS: Beta-Hydroxybutyrate 4.24 mg/dl (0.2-2.81)
[2019-11-12] MEDS ORDERED: ALBUT/IPRATROP 3MG/0.5MG NEB 3 ML VIAL NEB PRN (11:46)
[2019-11-12 11:48] LABS: Potassium 4.3 mmol/L (3.5-5.1)
[2019-11-12] MEDS ORDERED: INSULIN HUMAN REGULAR PER UNIT 10 UNITS in SYRINGE 9.9 ML IV ONE (12:00)
[2019-11-12] MEDS ORDERED: PHARMACY GLYCEMIC MGMT CONSULT PRN (13:42)
[2019-11-12] MEDS ORDERED: SEVERE STRESS LEVEL ONE (13:49)
[2019-11-12] MEDS ORDERED: INSULIN PROTOCOL GOAL RANGE ONE (13:49)
[2019-11-12] MEDS ORDERED: INSULIN REGULAR 250 UNITS in SODIUM CHLORIDE 0.9% 247.5 ML IV SCH (14:00)
--- NOTE | 2019-11-12 14:39 | Pharmacy Report ---
Glycemic Control Consultation - Date of Service November 12, 2019 - Scope Scope: Glycemic Pharmacist consulted for glycemic control and to write orders per [facility] inpatient glycemic control protocol. - Objective Weight: 139.7 kg Accuchecks BSG (last 24hrs): 11/11/19 11/11/19 11/12/19 16:32 20:48 07:32 Glucose POC Glucose 291 H 262 H 298 H 11/12/19 11/12/19 11/12/19 09:58 11:39 13:15 Glucose 438 H* POC Glucose 383 H* 396 H* Laboratory Data (last 24hrs): 11/12/19 09:58 Potassium 4.3 D Carbon Dioxide 29 Anion Gap 7.0 Creatinine 0.83 Est Cr Clr Drug Dosing 99.9 Beta-Hydroxybutyric Acd 4.24 H - Recent Pertinent Medications Outpatient Anti-diabetic Regimen: * Levemir 26 units SC HS * Novolog 30 units SC qAM, HS * A1c ordered for tomorrow The patient is currently receiving: * Basal insulin: Lantus 25 units every 12 hours * Correctional Insulin: Novolog Correction per scale ACHS Goal Range: Low 140 mg/dL - High 180 mg/dL Correction Factor: 10 mg/dL/unit * Prandial insulin: Per carb ratio of 1 unit per 4 grams CHO consumed Risk Factors for Insulin Resistance: * Steroids: IV Solu-medrol * Infection: empiric cefepime * Diet: T2DM - Assessment & Plan Assessment & Plan: ASSESSMENT: * BD is a 64 year old female admitted on 11/10 with COPD exacerbation * Received IV methylprednisolone x 3 doses * Pharmacy consulted on 11/11 for BSG of 396 mg/dL - 1 hour after receiving IV insulin bolus * Case discussed with consulting provider and agreed on initiating insulin drip based on lack of response to insulin bolus * IV steroids d/c'd today - prednisone 40 mg PO daily to start tomorrow morning * will consider NPH insulin to be given with that dose PLAN FOR INPATIENT GLYCEMIC CONTROL: * Starting IV insulin infusion per severe stress protocol * Goal Range 110 - 180 mg/dl * Holding outpatient oral diabetes medications * Basal insulin - hold SC basal at this time * received Lantus 25 units this morning * consider NPH insulin tomorrow morning to be given with prednisone * Bolus insulin * NovoLog per scale ACHS or Q6hrs while NPO * Nutritional / Prandial insulin per carb ratio of 1 unit per 4 grams CHO consumed * ---weight-based/stress of 3 dosing * Please note that the plan above was derived based on current level of insulin resistance and hospital stress. These recommendations are appropriate for inpatient admission only. Plan of care upon discharge will need to be reassessed to avoid potential outpatient hypo/hyperglycemia. Thank you.
--- NOTE | 2019-11-12 19:48 | Hospitalist Progress Note ---
Date of Service November 12, 2019 Assessment & Plan (1) Gram-negative bacteremia: uncertain source. Cont cefepime and consult ID for recs. Awaiting speciation. Patient denies travel, UTI symptoms, GI symptoms, rashes. Small wound on lower right leg which is scabbed over and well healed. Not a likely source. Reports normal BMs and no abdominal pain. Tolerating PO (2) Acute exacerbation of chronic obstructive pulmonary disease (COPD): Smoker, switched IV steroids to prednisone. cont duonebs PRN. Doing better clinically. Managing blood sugars more aggressively with insulin with the steroids on board. (3) Nocturnal hypoxemia: Oxygen as needed (4) Sleep apnea: BiPAP HS per home regimen. (5) Chronic diastolic (congestive) heart failure: Appears euvolemic. Continue torsemide, Coreg, Lisinopril (6) Diabetes mellitus, type 2: A1c of 8.1 in September 2019 -Hold home agents -more aggressive IV insulin for elevated blood sugars while on steroids -working closely with glycemic pharmacist on this -Basal/bolus insulin per protocol while in-patient -BSG AC HS (7) Hypertension: Continue Coreg, Amlodipine and Lisinopril (8) Tobacco use disorder: Cessation encouraged (9) Hyperlipidemia: Continue statin (10) DVT prophylaxis: DVT Ppx: SQ heparin Code status: FULL PCP: Eleuterio Dispo: Admitted to PCU. Plan to return home once medically stable. DO [facility] Admission and Anticipated Discharge Date Admission Date: November 11, 2019 Subjective feeling well reports improvement in her breathing afebrile Review of Systems Review of Systems: All systems reviewed & are unremarkable except as noted in Subjective Physical Exam Physical Exam: CONSTITUTIONAL: obese, vitals as above, generally well- appearing EYES: normal conjunctivae, no scleral icterus ENT: external ear and nose normal, oropharynx clear,MMM RESPIRATORY: clear to auscultation bilaterally, no crackles, rales or wheezes, normal respiratory effort CARDIOVASCULAR: regular rate and rhythm, S1 and 2 heard without murmurs, gallops or rubs, no JVD, no peripheral edema GASTROINTESTINAL: soft, nontender, nondistended MUSCULOSKELETAL: strength 5/5 throughout, head is normocephalic and atraumatic SKIN: warm and dry, no rashes NEUROLOGIC: CN 2-12 grossly intact, normal cognition, normal speech, no gross focal deficits. PSYCHIATRIC: alert cooperative and oriented to person, place and time. Results & Data Results & Data ([facility]) Vital Signs (Past 12 Hours) Vital Signs Temp Pulse Pulse Pulse Resp BP BP 11/12/19 19:46 36.2 C L 85 18 140/93 11/12/19 16:00 86 11/12/19 15:51 36.4 C L 70 23 124/62 11/12/19 12:05 36.5 C 105 H 18 128/70 11/12/19 11:32 88 16 11/12/19 08:00 36.6 C 104 H 18 168/79 H Pulse Ox 11/12/19 19:46 93 11/12/19 16:00 11/12/19 15:51 96 11/12/19 12:05 91 11/12/19 11:32 96 11/12/19 08:00 94 Laboratory Results Short CBC 11/12/19 Range/Units 09:58 WBC 16.96 H (4.8-10.8) K/uL Hgb 13.5 (12.0-16.0) g/dL Hct 39.4 (37-47) % Plt Count 241 (130-400) K/uL BMP 11/12/19 09:58 Sodium 134 L Potassium 4.3 D Chloride 98 Carbon Dioxide 29 BUN 14 Creatinine 0.83 Glucose 438 H* Calcium 8.5 Medications Administered Current Inpatient Medications Acetaminophen (Tylenol) 650 mg PO Q4H PRN PRN Reason: Pain or Fever Stop: 12/11/19 15:31 Albuterol (Duoneb) 3 ml NEB Q4R PRN PRN Reason: SOB/wheezing Stop: 12/11/19 15:31 Amlodipine Besylate (Norvasc) 5 mg PO DAILY [facility] Stop: 12/12/19 08:59 Last Admin: 11/12/19 08:34 Dose: 5 mg Documented by: Aspirin (Ecotrin) 325 mg PO QAM [facility] Stop: 12/12/19 08:59 Last Admin: 11/12/19 08:31 Dose: 325 mg Documented by: Atorvastatin Calcium (Lipitor) 80 mg PO HS [facility] Stop: 12/11/19 20:59 Last Admin: 11/11/19 20:59 Dose: 80 mg Documented by: Carvedilol (Coreg) 37.5 mg PO BID [facility] Stop: 12/11/19 20:59 Last Admin: 11/12/19 08:31 Dose: 37.5 mg Documented by: Clopidogrel Bisulfate (Plavix) 75 mg PO QAM [facility] Stop: 12/12/19 08:59 Last Admin: 11/12/19 08:34 Dose: 75 mg Documented by: Dextrose (Dextrose 50%) 25 - 50 ml IV UD PRN; Protocol PRN Reason: Hypoglycemia Protocol Stop: 12/11/19 15:31 Ezetimibe (Zetia) 10 mg PO QAM [facility] Stop: 12/12/19 08:59 Last Admin: 11/12/19 08:34 Dose: 10 mg Documented by: Glucagon (Glucagen) 1 mg SQ UD PRN; Protocol PRN Reason: Hypoglycemia Protocol Stop: 12/11/19 15:31 Glucose (Dex4 Glucose) 4 - 8 tabs PO UD PRN; Protocol PRN Reason: Hypoglycemia Protocol Stop: 12/11/19 15:31 Glucose (Glucose 40%) 15 - 30 gm PO UD PRN; Protocol PRN Reason: Hypoglycemia Protocol Stop: 12/11/19 15:31 Heparin Sodium (Porcine) (Heparin Sodium (Porcine)) 5,000 units SQ Q8 [facility] Stop: 12/11/19 21:59 Last Admin: 11/12/19 14:51 Dose: 5,000 units Documented by: Cefepime HCl 2,000 mg/ Syringe 20 mls @ 5 mls/min IV Q8H [facility]; Protocol Stop: 11/13/19 19:59 Last Admin: 11/12/19 12:11 Dose: 5 mls/min Documented by: Insulin Human Regular 250 (units/ Sodium Chloride) 250 mls @ 3.6 mls/hr IV .Q24H [facility]; Protocol Stop: 12/12/19 13:59 Last Titration: 11/12/19 18:50 Dose: 3.6 units/hr, 3.6 mls/hr Documented by: Insulin Aspart (Novolog Flexpen) 0 units SC ACHS [facility] Stop: 12/12/19 16:29 Last Admin: 11/12/19 17:23 Dose: 12 units Documented by: Ioversol (Optiray 320 125ml) 119 ml IV ONCE PRN PRN Reason: Interaction Checking Stop: 11/15/19 15:05 Last Admin: 11/11/19 15:06 Dose: 119 ml Documented by: Lisinopril (Zestril) 40 mg PO QAM [facility] Stop: 12/12/19 08:59 Last Admin: 11/12/19 08:34 Dose: 40 mg Documented by: Miscellaneous (Carbohydrates For Hypoglycemia) 15 - 30 gm PO UD PRN PRN Reason: Hypoglycemia Protocol Stop: 12/11/19 15:31 Miscellaneous Information (Cefepime Consult Active) 1 ea N/A UD PRN PRN Reason: Consult Stop: 12/11/19 15:49 Miscellaneous Information (Consult Glycemic Management Pharmacy) 1 ea N/A UD PRN PRN Reason: Consult Stop: 12/12/19 13:41 Polyethylene Glycol (Miralax Powder Packet) 17 gm PO DAILY PRN PRN Reason: Constipation Stop: 12/11/19 15:31 Potassium Chloride (Klor-Con M10) 10 meq PO QAM [facility] Stop: 12/12/19 08:59 Last Admin: 11/12/19 08:34 Dose: 10 meq Documented by: Prednisone (Prednisone) 40 mg PO DAILY [facility] Stop: 12/13/19 08:59 Torsemide (Demadex) 20 mg PO QAM [facility] Stop: 12/12/19 08:59 Last Admin: 11/12/19 08:34 Dose: 20 mg Documented by: Umeclidinium/Vilanterol (Anoro Ellipta 62.5/25 Mcg Inh) 1 puffs INH DAILY [facility] Stop: 12/12/19 08:59 Last Admin: 11/12/19 08:26 Dose: 1 puffs Documented by:
[2019-11-12] MEDS: ATORVASTATIN 40 MG TAB PO SCH (21:15)
[2019-11-13] MEDS: INSULIN ASPART 100 UNITS/ML 3 ML PEN SC SCH ×6 (04:51→20:45)
[2019-11-13] MEDS: CEFEPIME 2,000 MG in SYRINGE 7.5 ML IV SCH ×3 (05:08→20:49)
[2019-11-13] MEDS: HEPARIN SOD 5,000 UNIT/0.5 ML VIAL SQ SCH ×3 (05:08→20:43)
[2019-11-13] MEDS: lisinopriL 40 MG TAB PO SCH (08:09)
[2019-11-13] MEDS: UMECLIDINIUM/VILANTEROL 62.5/25MCG 7 PUFFS/INHALER INH SCH (08:09)
[2019-11-13] MEDS: carvediloL 25 MG TAB PO SCH ×2 (08:10→20:41)
[2019-11-13] MEDS: predniSONE 20 MG TAB PO SCH (08:11)
[2019-11-13] MEDS: TORSEMIDE 20 MG TAB PO SCH (08:11)
[2019-11-13] MEDS: CLOPIDOGREL BISULFATE 75 MG TAB PO SCH (08:11)
[2019-11-13] MEDS: EZETIMIBE 10 MG TABLET PO SCH (08:12)
[2019-11-13] MEDS: AMLODIPINE BESYLATE 5 MG TAB PO SCH (08:12)
[2019-11-13] MEDS: POTASSIUM CHLORIDE 10 MEQ TABCR PO SCH (08:12)
[2019-11-13] MEDS: ASPIRIN 325 MG ECTAB PO SCH (08:12)
[2019-11-13] MEDS ORDERED: NovoLIN-N (NPH) PER UNIT CHARGE SQ SCH (09:00)
[2019-11-13 09:16] LABS: Hematocrit (blood only) 38.6 % (37-47); Hemoglobin 12.8 g/dL (12.0-16.0); Mean Corpuscular Hemoglobin 29.2 pg (25-34); Mean Corpuscular Hgb Conc 33.2 g/dL (32-36); Mean Corpuscular Volume 88.1 fL (80-100); Mean Platelet Volume 10.2 fL (7.4-10.4); Platelet Count 239 K/uL (130-400); RDW Standard Deviation 48.4 fL (36.4-46.3); Red Blood Count 4.38 M/uL (4.2-5.4); White Blood Count 12.26 K/uL (4.8-10.8)
--- NOTE | 2019-11-13 09:24 | Pharmacy Report ---
Pharmacy Glycemic Short Note 2 - Date of Service November 13, 2019 - Glycemic Short BSG Results (Last 24 hours): 11/12/19 11/12/19 11/12/19 09:58 11:39 13:15 Glucose 438 H* POC Glucose 383 H* 396 H* 11/12/19 11/12/19 11/12/19 14:57 15:53 16:59 Glucose POC Glucose 322 H* 232 H 164 H 11/12/19 11/12/19 11/12/19 17:58 18:47 19:59 Glucose POC Glucose 227 H 217 H 209 H 11/12/19 11/12/19 11/12/19 21:05 22:02 23:02 Glucose POC Glucose 170 H 156 H 109 H 11/12/19 11/12/19 11/12/19 23:21 23:40 23:59 Glucose POC Glucose 103 H 91 96 11/13/19 11/13/19 01:59 04:20 Glucose POC Glucose 90 112 H OUTPATIENT ANTIDIABETIC REGIMEN: * Levemir 26 units SC HS * Novolog 30 units SC qA, HS * A1c: 8.7% (11/13/19) ASSESSMENT: * Insulin drip discontinued overnight after consecutive BSGs under 120 mg/dL * Novolog re-ordered at parameters of CF of 20 and CR of 8 - anticipating that this will need to be tightened at lunch * Steroids de-escalated to prednisone 40 mg PO daily today - will give NPH with this dose * Morning BSG obtained after patient ate breakfast - BSG of 337 mg/dL * Currently receiving cefepime 2 g IV q8h for treatment of gram-negative bacilli bacteremia * Lunch BSG of 307 mg/dL - will order 10 unit IV insulin bolus and tighten Novolog PLAN FOR INPATIENT GLYCEMIC CONTROL: * Hold outpatient oral diabetes medications * Basal insulin * NPH 35 units (~0.4 unit/kg adjusted body weight) * Levemir scale this evening (25-35 units - see EHR for details) * Bolus insulin - tighten * NovoLog per scale ACHS or Q6hrs while NPO * Goal Range: Low 110 mg/dL - High 140 mg/dL * Correction Factor: 10 mg/dL/unit * Nutritional / Prandial insulin per carb ratio of 1 unit per 4 grams CHO consumed PLAN FOR DISCHARGE: * TBD
[2019-11-13 09:52] LABS: BUN Creatinine Ratio 26.1 (10-20); Calcium 8.1 mg/dl (8.5-10.1); Creatinine Clr Calc Pharmacy 101.2 ml/min; Est GFR (African American) 88.9; Est GFR (Non-African American) 76.7; Magnesium 2.2 mg/dl (1.8-2.4); Potassium 3.6 mmol/L (3.5-5.1)
[2019-11-13 10:12] LABS: Beta-Hydroxybutyrate 1.32 mg/dl (0.2-2.81)
[2019-11-13 10:26] LABS: Estimated Average Glucose 203 mg/dl; Hemoglobin A1C 8.7 % (4.5-5.6)
[2019-11-13] MEDS ORDERED: INSULIN HUMAN REGULAR PER UNIT 10 UNITS in SYRINGE 9.9 ML IV ONE (11:30)
--- NOTE | 2019-11-13 13:20 | Electrocardiogram Report ---
Test Reason : Blood Pressure : / mmHG Vent. Rate : 094 BPM Atrial Rate : 094 BPM P-R Int : 148 ms QRS Dur : 136 ms QT Int : 382 ms P-R-T Axes : 066 047 015 degrees QTc Int : 477 ms Normal sinus rhythm Right bundle branch block Abnormal ECG When compared with ECG of 11-OCT-2017 09:23, Right bundle branch block is now Present Confirmed by Adria Lanier ([id number]) on 11/13/2019 1:20:28 PM Referred By: ER Confirmed By:Adria Lanier
--- NOTE | 2019-11-13 13:47 | Electrocardiogram Report ---
Test Reason : Blood Pressure : / mmHG Vent. Rate : 096 BPM Atrial Rate : 096 BPM P-R Int : 150 ms QRS Dur : 138 ms QT Int : 392 ms P-R-T Axes : 061 035 005 degrees QTc Int : 495 ms Normal sinus rhythm Right bundle branch block Abnormal ECG When compared with ECG of 11-NOV-2019 11:34, (unconfirmed) No significant change was found Confirmed by Adria Lanier ([id number]) on 11/13/2019 1:47:45 PM Referred By: REFERRED SELF Confirmed By:Adria Lanier
--- NOTE | 2019-11-13 13:55 | Hospitalist Progress Note ---
Date of Service November 13, 2019 Assessment & Plan (1) Gram-negative bacteremia: Gram negative bacteremia. No sepsis. Cont cefepime for now. Unclear source. Patient denies travel, UTI symptoms, GI symptoms, rashes. Small wound on lower right leg which is scabbed over and well healed. (2) Acute exacerbation of chronic obstructive pulmonary disease (COPD): Smoker, cont prednisone-this is Day 3 of steroids. Cont duonebs PRN. Doing better clinically. (3) Nocturnal hypoxemia: Oxygen as needed (4) Sleep apnea: BiPAP qHS (5) Chronic diastolic (congestive) heart failure: Appears euvolemic. Continue torsemide, Coreg, Lisinopril (6) Diabetes mellitus, type 2: A1c of 8.1 in September 2019 -Hold home agents -inpatient hyperglycemia this morning with steroids on board. -appreciate glycemic pharmacist assistance and recs. -Basal/bolus insulin per protocol while in-patient -BSG AC HS (7) Hypertension: Continue Coreg, Amlodipine and Lisinopril (8) Tobacco use disorder: Cessation encouraged (9) Hyperlipidemia: Continue statin per home regimen. (10) DVT prophylaxis: DVT Ppx: SQ heparin Code status: FULL PCP: Eleuterio Dispo: plan for return home when blood culture results are finalized. Nighat Barron DO [facility] Hospitalist Admission and Anticipated Discharge Date Admission Date: November 11, 2019 Subjective No wheezing, breathing has normalized no coughing or fevers tolerating PO Review of Systems Review of Systems: All systems reviewed & are unremarkable except as noted in Subjective Physical Exam Physical Exam: CONSTITUTIONAL: obese, vitals as above, generally well- appearing EYES: normal conjunctivae, no scleral icterus ENT: external ear and nose normal, oropharynx clear, MMM RESPIRATORY: clear to auscultation bilaterally, no crackles, rales or wheezes, normal respiratory effort CARDIOVASCULAR: regular rate and rhythm, S1 and 2 heard without murmurs, gallops or rubs, no JVD, no peripheral edema GASTROINTESTINAL: soft, nontender, nondistended MUSCULOSKELETAL: strength 5/5 throughout, head is normocephalic and atraumatic SKIN: warm and dry, no rashes NEUROLOGIC: CN 2-12 grossly intact, normal cognition, normal speech, no gross focal deficits. PSYCHIATRIC: alert cooperative and oriented to person, place and time. Results & Data Results & Data ([place]) Vital Signs (Past 12 Hours) Vital Signs Temp Pulse Pulse Resp BP BP Pulse Ox 11/13/19 11:57 37.0 C 69 18 158/79 H 97 11/13/19 07:59 75 11/13/19 07:52 36.5 C 66 18 158/79 H 95 11/13/19 04:00 36.5 C 74 20 162/68 H 94 11/13/19 03:18 89 18 97 Laboratory Results Short CBC 11/13/19 Range/Units 08:49 WBC 12.26 H (4.8-10.8) K/uL Hgb 12.8 (12.0-16.0) g/dL Hct 38.6 (37-47) % Plt Count 239 (130-400) K/uL BMP 11/13/19 08:49 Sodium 135 L Potassium 3.6 D Chloride 99 Carbon Dioxide 30 BUN 21 H Creatinine 0.82 Glucose 316 H* Calcium 8.1 L Medications Administered Current Inpatient Medications Acetaminophen (Tylenol) 650 mg PO Q4H PRN PRN Reason: Pain or Fever Stop: 12/11/19 15:31 Albuterol (Duoneb) 3 ml NEB Q4R PRN PRN Reason: SOB/wheezing Stop: 12/11/19 15:31 Amlodipine Besylate (Norvasc) 5 mg PO DAILY [facility] Stop: 12/12/19 08:59 Last Admin: 11/13/19 08:12 Dose: 5 mg Documented by: Aspirin (Ecotrin) 325 mg PO QAM [facility] Stop: 12/12/19 08:59 Last Admin: 11/13/19 08:12 Dose: 325 mg Documented by: Atorvastatin Calcium (Lipitor) 80 mg PO HS [facility] Stop: 12/11/19 20:59 Last Admin: 11/12/19 21:15 Dose: 80 mg Documented by: Carvedilol (Coreg) 37.5 mg PO BID [facility] Stop: 12/11/19 20:59 Last Admin: 11/13/19 08:10 Dose: 37.5 mg Documented by: Clopidogrel Bisulfate (Plavix) 75 mg PO QAM [facility] Stop: 12/12/19 08:59 Last Admin: 11/13/19 08:11 Dose: 75 mg Documented by: Dextrose (Dextrose 50%) 25 - 50 ml IV UD PRN; Protocol PRN Reason: Hypoglycemia Protocol Stop: 12/11/19 15:31 Ezetimibe (Zetia) 10 mg PO QAM [facility] Stop: 12/12/19 08:59 Last Admin: 11/13/19 08:12 Dose: 10 mg Documented by: Glucagon (Glucagen) 1 mg SQ UD PRN; Protocol PRN Reason: Hypoglycemia Protocol Stop: 12/11/19 15:31 Glucose (Dex4 Glucose) 4 - 8 tabs PO UD PRN; Protocol PRN Reason: Hypoglycemia Protocol Stop: 12/11/19 15:31 Glucose (Glucose 40%) 15 - 30 gm PO UD PRN; Protocol PRN Reason: Hypoglycemia Protocol Stop: 12/11/19 15:31 Heparin Sodium (Porcine) (Heparin Sodium (Porcine)) 5,000 units SQ Q8 [facility] Stop: 12/11/19 21:59 Last Admin: 11/13/19 05:08 Dose: 5,000 units Documented by: Cefepime HCl 2,000 mg/ Syringe 20 mls @ 5 mls/min IV Q8H [facility]; Protocol Stop: 11/25/19 19:59 Last Admin: 11/13/19 11:29 Dose: 5 mls/min Documented by: Insulin Aspart (Novolog Flexpen) 0 units SC ACHS [facility] Stop: 12/13/19 03:59 Last Admin: 11/13/19 12:11 Dose: 31 units Documented by: Insulin Detemir (Levemir Flextouch) 0 units SC HS [facility]; Protocol Stop: 12/13/19 20:59 Ioversol (Optiray 320 125ml) 119 ml IV ONCE PRN PRN Reason: Interaction Checking Stop: 11/15/19 15:05 Last Admin: 11/11/19 15:06 Dose: 119 ml Documented by: Lisinopril (Zestril) 40 mg PO QAM [facility] Stop: 12/12/19 08:59 Last Admin: 11/13/19 08:09 Dose: 40 mg Documented by: Miscellaneous (Carbohydrates For Hypoglycemia) 15 - 30 gm PO UD PRN PRN Reason: Hypoglycemia Protocol Stop: 12/11/19 15:31 Miscellaneous Information (Cefepime Consult Active) 1 ea N/A UD PRN PRN Reason: Consult Stop: 12/11/19 15:49 Miscellaneous Information (Consult Glycemic Management Pharmacy) 1 ea N/A UD PRN PRN Reason: Consult Stop: 12/12/19 13:41 Polyethylene Glycol (Miralax Powder Packet) 17 gm PO DAILY PRN PRN Reason: Constipation Stop: 12/11/19 15:31 Potassium Chloride (Klor-Con M10) 10 meq PO QAM [facility] Stop: 12/12/19 08:59 Last Admin: 11/13/19 08:12 Dose: 10 meq Documented by: Prednisone (Prednisone) 40 mg PO DAILY [facility] Stop: 12/13/19 08:59 Last Admin: 11/13/19 08:11 Dose: 40 mg Documented by: Torsemide (Demadex) 20 mg PO QAM [facility] Stop: 12/12/19 08:59 Last Admin: 11/13/19 08:11 Dose: 20 mg Documented by: Umeclidinium/Vilanterol (Anoro Ellipta 62.5/25 Mcg Inh) 1 puffs INH DAILY [facility] Stop: 12/12/19 08:59 Last Admin: 11/13/19 08:09 Dose: 1 puffs Documented by:
[2019-11-13] MEDS: ATORVASTATIN 40 MG TAB PO SCH (20:42)
[2019-11-13] MEDS ORDERED: INSULIN DETEMIR FLEXPEN/FLEX TOUCH 100 UNITS/ML 3ML SC SCH (21:00)
[2019-11-14] MEDS: CEFEPIME 2,000 MG in SYRINGE 7.5 ML IV SCH ×3 (04:08→21:46)
[2019-11-14] MEDS: HEPARIN SOD 5,000 UNIT/0.5 ML VIAL SQ SCH ×3 (06:07→21:53)
[2019-11-14 06:54] LABS: Creatinine Clr Calc Pharmacy 140.1 ml/min; Est GFR (African American) 113.9; Est GFR (Non-African American) 98.2
[2019-11-14] MEDS: INSULIN ASPART 100 UNITS/ML 3 ML PEN SC SCH ×4 (08:28→21:52)
[2019-11-14] MEDS ORDERED: NovoLIN-N (NPH) PER UNIT CHARGE SQ SCH (09:00)
[2019-11-14] MEDS: POTASSIUM CHLORIDE 10 MEQ TABCR PO SCH (09:02)
[2019-11-14] MEDS: lisinopriL 40 MG TAB PO SCH (09:02)
[2019-11-14] MEDS: ASPIRIN 325 MG ECTAB PO SCH (09:02)
[2019-11-14] MEDS: predniSONE 20 MG TAB PO SCH (09:02)
[2019-11-14] MEDS: TORSEMIDE 20 MG TAB PO SCH (09:02)
[2019-11-14] MEDS: CLOPIDOGREL BISULFATE 75 MG TAB PO SCH (09:03)
[2019-11-14] MEDS: EZETIMIBE 10 MG TABLET PO SCH (09:03)
[2019-11-14] MEDS: UMECLIDINIUM/VILANTEROL 62.5/25MCG 7 PUFFS/INHALER INH SCH (09:03)
[2019-11-14] MEDS: AMLODIPINE BESYLATE 5 MG TAB PO SCH (09:03)
[2019-11-14] MEDS: carvediloL 25 MG TAB PO SCH ×2 (09:04→21:48)
--- NOTE | 2019-11-14 10:38 | Pharmacy Report ---
Pharmacy Glycemic Short Note 2 - Date of Service November 14, 2019 - Glycemic Short BSG Results (Last 24 hours): 11/13/19 11/13/19 11/13/19 11:11 11:12 11:13 POC Glucose 371 H* 311 H* 307 H* 11/13/19 11/13/19 11/13/19 15:10 16:22 20:28 POC Glucose 225 H 228 H 168 H 11/14/19 06:46 POC Glucose 83 OUTPATIENT ANTIDIABETIC REGIMEN: * Levemir 26 units SC HS * Novolog 30 units SC qAM, HS * A1c: 8.7% (11/13/19) ASSESSMENT: 11/13 * 120 units SQ insulin administered over last 24 hrs while tolerating a diet * Fasting BSG 83 this AM with 60 units basal on board - will titrate down HS Levemir dose however continue NPH morning dose w/ Prednisone * Post-prandial BSGs better controlled after use of larger prandial insulin doses yesterday - will continue the same today * Prednisone 40mg PO daily continues PLAN FOR INPATIENT GLYCEMIC CONTROL: * Hold outpatient oral diabetes medications (metformin) * Basal insulin * NPH 35 units SQ Q AM w/ prednisone dose * Levemir 12 units Q HS * Bolus insulin no change * NovoLog per scale ACHS or Q6hrs while NPO * Goal Range: Low 110 mg/dL - High 140 mg/dL * Correction Factor: 10 mg/dL/unit * Nutritional / Prandial insulin per carb ratio of 1 unit per 4 grams CHO consumed PLAN FOR DISCHARGE: * To be determined. A1c > 8% indicates need for therapy adjustments. If patient is discharged on steroid, she may require NPH in addition to her usual insulin / metformin regimen.
--- NOTE | 2019-11-14 19:30 | Hospitalist Progress Note ---
Date of Service November 14, 2019 Assessment & Plan (1) Gram-negative bacteremia: E coli bacteremia with sensitivities still pending. Per micro, this needs to be replated and will return tomorrow. Cont cefepime for now. Unclear source. Patient denies travel, UTI symtpoms, GI symptoms, rashes. Small wound on lower right leg which is scabbed over and well healed. (2) Acute exacerbation of chronic obstructive pulmonary disease (COPD): Smoker, cont prednisone-this is Day 4 of steroids. Cont duonebs PRN. Doing better clinically. (3) Nocturnal hypoxemia: Oxygen as needed (4) Sleep apnea: BiPAP qHS (5) Chronic diastolic (congestive) heart failure: Appears euvolemic. Continue torsemide, Coreg, Lisinopril (6) Diabetes mellitus, type 2: A1c of 8.1 in September 2019 -Hold home agents -Basal/bolus insulin per protocol while in-patient -BSG AC HS (7) Hypertension: Continue Coreg, Amlodipine and Lisinopril (8) Tobacco use disorder: Cessation encouraged (9) Hyperlipidemia: Continue statin per home regimen. (10) DVT prophylaxis: DVT Ppx: SQ heparin Code status: FULL PCP: Eleuterio Dispo: plan for return home tomorrow. Awaiting final blood culture results. Nighat Barron DO [facility] Hospitalist Admission and Anticipated Discharge Date Admission Date: November 11, 2019 Subjective doing well today afebrile no changes awaiting final culture results-per micro lab this will return tomorrow as sample had to be redone Review of Systems Review of Systems: All systems reviewed & are unremarkable except as noted in Subjective Physical Exam Physical Exam: CONSTITUTIONAL: obese, vitals as above, generally well- appearing EYES: normal conjunctivae, no scleral icterus ENT: external ear and nose normal, oropharynx clear,MMM RESPIRATORY: clear to auscultation bilaterally, no crackles, rales or wheezes, normal respiratory effort CARDIOVASCULAR: regular rate and rhythm, S1 and 2 heard without murmurs, gallops or rubs, no JVD, no peripheral edema GASTROINTESTINAL: soft, nontender, nondistended MUSCULOSKELETAL: strength 5/5 throughout, head is normocephalic and atraumatic SKIN: warm and dry, no rashes NEUROLOGIC: CN 2-12 grossly intact, normal cognition, normal speech, no gross focal deficits. PSYCHIATRIC: alert cooperative and oriented to person, place and time. Results & Data Results & Data ([facility]) Vital Signs (Past 12 Hours) Vital Signs Temp Pulse Pulse Resp BP Pulse Ox 11/14/19 15:21 37.1 C 72 16 135/84 93 11/14/19 10:45 36.8 C 66 16 131/88 94 11/14/19 07:49 36.6 C 72 18 180/95 H 95 Laboratory Results BMP 11/14/19 05:57 Creatinine 0.59 L Medications Administered Current Inpatient Medications Acetaminophen (Tylenol) 650 mg PO Q4H PRN PRN Reason: Pain or Fever Stop: 12/11/19 15:31 Albuterol (Duoneb) 3 ml NEB Q4R PRN PRN Reason: SOB/wheezing Stop: 12/11/19 15:31 Amlodipine Besylate (Norvasc) 5 mg PO DAILY [facility] Stop: 12/12/19 08:59 Last Admin: 11/14/19 09:03 Dose: 5 mg Documented by: Aspirin (Ecotrin) 325 mg PO QAM [facility] Stop: 12/12/19 08:59 Last Admin: 11/14/19 09:02 Dose: 325 mg Documented by: Atorvastatin Calcium (Lipitor) 80 mg PO HS [facility] Stop: 12/11/19 20:59 Last Admin: 11/13/19 20:42 Dose: 80 mg Documented by: Carvedilol (Coreg) 37.5 mg PO BID [facility] Stop: 12/11/19 20:59 Last Admin: 11/14/19 09:04 Dose: 37.5 mg Documented by: Clopidogrel Bisulfate (Plavix) 75 mg PO QAM [facility] Stop: 12/12/19 08:59 Last Admin: 11/14/19 09:03 Dose: 75 mg Documented by: Dextrose (Dextrose 50%) 25 - 50 ml IV UD PRN; Protocol PRN Reason: Hypoglycemia Protocol Stop: 12/11/19 15:31 Ezetimibe (Zetia) 10 mg PO QAM [facility] Stop: 12/12/19 08:59 Last Admin: 11/14/19 09:03 Dose: 10 mg Documented by: Glucagon (Glucagen) 1 mg SQ UD PRN; Protocol PRN Reason: Hypoglycemia Protocol Stop: 12/11/19 15:31 Glucose (Dex4 Glucose) 4 - 8 tabs PO UD PRN; Protocol PRN Reason: Hypoglycemia Protocol Stop: 12/11/19 15:31 Glucose (Glucose 40%) 15 - 30 gm PO UD PRN; Protocol PRN Reason: Hypoglycemia Protocol Stop: 12/11/19 15:31 Heparin Sodium (Porcine) (Heparin Sodium (Porcine)) 5,000 units SQ Q8 [facility] Stop: 12/11/19 21:59 Last Admin: 11/14/19 12:59 Dose: 5,000 units Documented by: Cefepime HCl 2,000 mg/ Syringe 20 mls @ 5 mls/min IV Q8H [facility]; Protocol Stop: 11/25/19 19:59 Last Admin: 11/14/19 12:58 Dose: 5 mls/min Documented by: Insulin Aspart (Novolog Flexpen) 0 units SC ACHS [facility] Stop: 12/13/19 03:59 Last Admin: 11/14/19 18:14 Dose: 18 units Documented by: Insulin Detemir (Levemir Flextouch) 12 units SC HS [facility] Stop: 12/14/19 20:59 Ioversol (Optiray 320 125ml) 119 ml IV ONCE PRN PRN Reason: Interaction Checking Stop: 11/15/19 15:05 Last Admin: 11/11/19 15:06 Dose: 119 ml Documented by: Lisinopril (Zestril) 40 mg PO QAM [facility] Stop: 12/12/19 08:59 Last Admin: 11/14/19 09:02 Dose: 40 mg Documented by: Miscellaneous (Carbohydrates For Hypoglycemia) 15 - 30 gm PO UD PRN PRN Reason: Hypoglycemia Protocol Stop: 12/11/19 15:31 Miscellaneous Information (Cefepime Consult Active) 1 ea N/A UD PRN PRN Reason: Consult Stop: 12/11/19 15:49 Miscellaneous Information (Consult Glycemic Management Pharmacy) 1 ea N/A UD PRN PRN Reason: Consult Stop: 12/12/19 13:41 Polyethylene Glycol (Miralax Powder Packet) 17 gm PO DAILY PRN PRN Reason: Constipation Stop: 12/11/19 15:31 Potassium Chloride (Klor-Con M10) 10 meq PO QAM [facility] Stop: 12/12/19 08:59 Last Admin: 11/14/19 09:02 Dose: 10 meq Documented by: Prednisone (Prednisone) 40 mg PO DAILY [facility] Stop: 12/13/19 08:59 Last Admin: 11/14/19 09:02 Dose: 40 mg Documented by: [facility]) [facility] Stop: 12/12/19 08:59 Last Admin: 11/14/19 09:02 Dose: 20 mg Documented by: Umeclidinium/Vilanterol (Anoro Ellipta 62.5/25 Mcg Inh) 1 puffs INH DAILY [facility] Stop: 12/12/19 08:59 Last Admin: 11/14/19 09:03 Dose: 1 puffs Documented by:
[2019-11-14] MEDS ORDERED: INSULIN DETEMIR FLEXPEN/FLEX TOUCH 100 UNITS/ML 3ML SC SCH (21:00)
[2019-11-14] MEDS: ATORVASTATIN 40 MG TAB PO SCH (21:47)
[2019-11-15] MEDS: CEFEPIME 2,000 MG in SYRINGE 7.5 ML IV SCH (03:58)
[2019-11-15] MEDS: HEPARIN SOD 5,000 UNIT/0.5 ML VIAL SQ SCH ×2 (05:44→13:12)
[2019-11-15] MEDS ORDERED: NovoLIN-N (NPH) PER UNIT CHARGE SQ SCH (09:00)
[2019-11-15] MEDS: carvediloL 25 MG TAB PO SCH (09:26)
[2019-11-15] MEDS: POTASSIUM CHLORIDE 10 MEQ TABCR PO SCH (09:28)
[2019-11-15] MEDS: ASPIRIN 325 MG ECTAB PO SCH (09:28)
[2019-11-15] MEDS: AMLODIPINE BESYLATE 5 MG TAB PO SCH (09:28)
[2019-11-15] MEDS: TORSEMIDE 20 MG TAB PO SCH (09:28)
[2019-11-15] MEDS: CLOPIDOGREL BISULFATE 75 MG TAB PO SCH (09:28)
[2019-11-15] MEDS: lisinopriL 40 MG TAB PO SCH (09:29)
[2019-11-15] MEDS: EZETIMIBE 10 MG TABLET PO SCH (09:29)
[2019-11-15] MEDS: predniSONE 20 MG TAB PO SCH (09:29)
[2019-11-15] MEDS: UMECLIDINIUM/VILANTEROL 62.5/25MCG 7 PUFFS/INHALER INH SCH (09:32)
[2019-11-15] MEDS: INSULIN ASPART 100 UNITS/ML 3 ML PEN SC SCH ×2 (09:36→13:08)
[2019-11-15] MEDS ORDERED: CIPROFLOXACIN 500 MG TAB PO SCH (11:00)
--- NOTE | 2019-11-15 12:01 | Pharmacy Report ---
Pharmacy Glycemic Short Note 2 - Date of Service November 15, 2019 - Glycemic Short BSG Results (Last 24 hours): 11/14/19 11/14/19 11/14/19 12:07 17:10 20:58 POC Glucose 156 H 212 H 188 H 11/15/19 08:15 POC Glucose 159 H OUTPATIENT ANTIDIABETIC REGIMEN: * Levemir 26 units SC HS * Novolog 30 units SC qAM, HS * A1c: 8.7% (11/13/19) ASSESSMENT: 11/14 * 88 units SQ insulin given over last 24 hours while tolerating diet * Fasting BSG 159 this AM with 47 units basal on board - will continue to titrate doses, goal FBS 90-140 * Post-prandial BSGs better controlled yesterday, but slightly above goal. Will increase prandial dose further * Prednisone 40mg PO daily continues 11/13 * 120 units SQ insulin administered over last 24 hrs while tolerating a diet * Fasting BSG 83 this AM with 60 units basal on board - will titrate down HS Levemir dose however continue NPH morning dose w/ Prednisone * Post-prandial BSGs better controlled after use of larger prandial insulin doses yesterday - will continue the same today * Prednisone 40mg PO daily continues PLAN FOR INPATIENT GLYCEMIC CONTROL: * Hold outpatient oral diabetes medications (metformin) * Basal insulin increase * NPH 40 units SQ Q AM w/ prednisone dose * Levemir 15 units Q HS * Bolus insulin no change * NovoLog per scale ACHS or Q6hrs while NPO * Goal Range: Low 110 mg/dL - High 140 mg/dL * Correction Factor: 10 mg/dL/unit * Nutritional / Prandial insulin per carb ratio of 1 unit per 3.5 grams CHO consumed PLAN FOR DISCHARGE: * To be determined. A1c > 8% indicates need for therapy adjustments. If patient is discharged on steroid, she may require NPH in addition to her usual insulin / metformin regimen.
--- NOTE | 2019-11-15 12:27 | Discharge Summary ---
Date of Service November 15, 2019 Admission HPI Per Admitting Provider This is a 64-year-old female with PMH of COPD with nocturnal hypoxemia, tobacco use disorder, moderate JEIMY, chronic diastolic heart failure, type 2 diabetes on insulin, dyslipidemia and other medical problems listed below who presents with worsening shortness of breath starting this morning. Patient states she has shortness of breath at baseline due to COPD and JEIMY but felt significantly more short of breath when she woke up this morning. Endorses dry cough and wheezing, which are close to her baseline, along with some lower extremity swelling. Has been taking all medications as scheduled. Denies any sick contacts, recent travel or known COVID exposure. Denies any fever or chills, although found to be febrile at 39.5 upon arrival. Denies any lightheadedness, headache, visual changes, chest pain, palpitations, hemoptysis, abdominal pain, nausea, vomiting, dysuria, diarrhea or constipation. No pain in lower extremities or history of blood clots. Admission Exam Per Admitting Provider General Appearance: WD/WN, vitals as above, NAD, sitting up in bed during neb treatment, morbidly obese, conversing easily Head: normocephalic, atraumatic Eyes: normal inspection, PERRL, conjunctivae normal, anicteric sclerae ENT: external ear and nose normal, oropharynx normal Neck: trachea midline, no thyromegaly, normal visual inspection Respiratory: normal respiratory effort, diminished lung sounds throughout, scattered expiratory wheezing, no rales. No accessory muscle use Cardiovascular: regular rate, rhythm, no murmur appreciated, normal peripheral pulses, pedal edema. Vessels: no JVD Chest: normal inspection of chest Abdomen/GI: normal bowel sounds, soft, nontender, no hepatosplenomegaly Extremities/Musculoskeletal: venous stasis hyperpigmentation, no cyanosis or clubbing, extremities motor strength 5/5 Neurologic: PERRL, EOMI, accommodation nl, no face palsy, no dysarthria, CN's II-XI intact bilaterally and moves all extremities Psychiatric: A+Ox3, euthymic affect Skin: no rashes, normal color, warm/dry. +healing lesion R anterior tibial surface Principal Diagnosis E coli bacteremia COPD exacerbation Discharge Exam CONSTITUTIONAL: obese, vitals as above, generally well-appearing EYES: normal conjunctivae, no scleral icterus ENT: external ear and nose normal, oropharynx clear,MMM RESPIRATORY: clear to auscultation bilaterally, no crackles, rales or wheezes, normal respiratory effort CARDIOVASCULAR: regular rate and rhythm, S1 and 2 heard without murmurs, gallops or rubs, no JVD, no peripheral edema GASTROINTESTINAL: soft, nontender, nondistended MUSCULOSKELETAL: strength 5/5 throughout, head is normocephalic and atraumatic SKIN: warm and dry, no rashes NEUROLOGIC: CN 2-12 grossly intact, normal cognition, normal speech, no gross focal deficits. PSYCHIATRIC: alert cooperative and oriented to person, place and time. Discharge Data Allergies Allergy/AdvReac Type Severity Reaction Status Date / Time No Known Allergies Allergy NONE Verified 11/11/19 10:39 Consultations 11/11/19 12:59 ED Decision to Admit Stat 11/12/19 09:36 Consult Infectious Diseases Routine Ordered Studies 11/11/19 14:45 CT angio chest PE protocol Urgent Hospital Course (1) Gram-negative bacteremia: uncertain source initially, however, patient reported on the last day of hospitalization that she accidentally put a diabetes needle into her finger and sucked on it a little to stop the bleeding. After that it was quite sore for a few days and this was just last week. Cefepime was given until final sensitivities returned and she was discharged on ciprofloxacin for the remainder of the 14 day course. Prior to dc she was afebrile and clinically stable. Repeat blood cultures revealed a clearing of the bacteremia. (2) Acute exacerbation of chronic obstructive pulmonary disease (COPD): Strongly recommended to quit smoking. States she has nicotine patches at home and will consider it. Initially given IV steroids for one day in addition to scheduled nebulizers. Switched to PO prednisone for next several days while hospitalized and breathing returned to baseline. (3) Diabetes mellitus, type 2: A1c of 8.7 this hospitalization, up from recent checks. More aggressive IV insulin therapy was given in light of steroid therapy. Inpatient glycemic pharmacist assisted with management. Work with PCP on getting this more under control. Close follow-up from hospital was recommended. (4) Tobacco use disorder: Cessation encouraged Total Time Total Time Spent Total Time Spent (In Minutes): 60 Total Time Includes: Examination of the Patient, Discharge Planning, Medication Reconciliation and Communication With Other Providers Discharge Plan Discharge Items Patient Disposition: Home - Self-Care Reason For Visit: COPD EXACERBATION, HYPOMAGNESEMIA, SEPSIS Discharge Diagnosis: E coli bacteremia COPD exacerbation Condition on Discharge: Fair Activity: Resume your previous activity Non-emergency contact: Primary Care Provider Call non-emergency contact if: you have any medication questions, your symptoms worsen, your pain is not controlled, your pain is worsening, your pain is unusual for you and you have a fever Follow-up/Referrals: Jeremie Mcclellan DO [Primary Care Provider] - 11/21/19 3:00 pm (11/21/2019 3:00 PM Provider Jeremie Mcclellan DO Department General Internal Medicine [facility] ) Diet: Carb Consistent or DM2 and Heart Healthy Addtl Attending Provider Instructions: Please take all medications as instructed on discharge list below. Please follow-up with your primary care physician at the time/date above. This is to ensure you are still doing well after getting out of the hospital, and to further discuss your diabetes and methods of better control of your blood sugar (HbA1C 8.7). It is strongly recommended that you quit smoking as this is bad for your health and may lead to issues with your breathing down the road. You were found to have bacteria in your blood from an unknown source. Please complete the entire course of antibiotics as prescribed. No further follow-up should be necessary for this. It was a pleasure taking care of you! Please call if you have any questions or problems. You can reach a [facility] hospitalist on duty at [facility] 24 hours a day by calling [phone]. Take care of yourself. Nighat Barron DO [facility] Hospitalist Pending Studies at Discharge: No Stand-Alone Forms: My [facility], Smoking Cessation Medications and DC Order Prescriptions: New ciprofloxacin HCl 500 mg Tablet 500 mg PO BID Qty: 16 RF: 0 Continued aspirin 325 mg tablet,delayed release (DR/EC) 325 mg PO QAM RF: 0 atorvastatin 80 mg tablet 80 mg PO HS RF: 0 carvedilol 25 mg tablet 37.5 mg PO BID RF: 0 insulin aspart U-100 [Novolog U-100 Insulin aspart] 100 unit/mL solution 30 units SQ QAM RF: 0 insulin aspart U-100 [Novolog U-100 Insulin aspart] 100 unit/mL solution 30 units SQ QDD RF: 0 ipratropium-albuterol [Combivent Respimat] 20-100 mcg/actuation mist 2 puffs INH Q4H PRN (Reason: shortness of breath) RF: 0 lisinopril 20 mg tablet 40 mg PO QAM RF: 0 metformin 1,000 mg tablet 1,000 mg PO BID RF: 0 potassium chloride 10 mEq capsule, extended release 10 meq PO QAM RF: 0 torsemide 20 mg tablet 20 mg PO QAM RF: 0 insulin detemir U-100 [Levemir U-100 Insulin] 100 unit/mL solution 26 units SQ HS RF: 0 Stiolto Respimat 2.5-2.5 mcg/actuation mist See Rx Instructions .ROUTE .COMPLEX Qty: 1 RF: 5 clopidogrel [Plavix] 75 mg tablet 75 mg PO QAM RF: 0 ezetimibe 10 mg tablet 10 mg PO QAM RF: 0 amlodipine 5 mg tablet 5 mg PO DAILY RF: 0 Discharge Orders: Discharge Order (Routine); Ordered 11/15/19 Ordered By: Nighat Hernandes/Other Patient Handouts: Managing Type 2 Diabetes, Managing Diabetes: The A1C Test, Diabetes: Meal Planning Admission Data Admit Date/Time: 11/11/19 13:56 Attending Provider: Nighat Barron Admit Provider: Nighat Barron Primary Care Provider: Jeremie Mcclellan Other Providers: Nighat Barron ; Ramon Mendoza ; Lawrence Dixon ; Yaw Kenny I. ; Jimbo Benavides II ; Courtney Carroll ; Darnell Husain Other Interventions: Discharge Summary Assessment (RN) Last Done: 11/15/19 12:59 DC Date/Time DO NOT enter until pt leaves facility: 11/15/19 15:21
[2019-11-15] MEDS ORDERED: INSULIN DETEMIR FLEXPEN/FLEX TOUCH 100 UNITS/ML 3ML SC SCH (21:00)
== END 2019-11-15 15:21 | disposition home or self-care (01) | DRG 872 ==
LOC: ED 09:46 → 2S 13:56 → 3N 11-14 08:28

== ENCOUNTER 2021-04-05 09:25 | Inpatient (IN) ==
[2021-04-05] MEDS ORDERED: methylPREDNISolone 125 MG/2 ML VIAL IV STA (09:31)
[2021-04-05] MEDS ORDERED: ALBUT/IPRATROP 3MG/0.5MG NEB 3 ML VIAL NEB ONE (09:31)
--- NOTE | 2021-04-05 09:39 | Emergency Department Note ---
Impression & Plan Respiratory failure, Hypoxia, COPD (chronic obstructive pulmonary disease), Shortness of breath ED Provider Note NAME: BAN KATE AGE: 65 SEX: F : 1955 ARRIVES VIA: Ambulance INFORMANT: Patient ED PROVIDER(S): Gordon Juárez DO CHIEF COMPLAINT: Shortness of breath HPI: Patient is a 65-year-old female with past medical history of smoking, COPD, hypertension, hyperlipidemia, diabetes, CHF on nighttime oxygen that presents the ER for shortness of breath. She was brought in by EMS. She is found to be 70% on room air. She was placed on nonrebreather. ROS: See above HPI for pertinent positives & negatives. A total of 10 systems reviewed and were otherwise negative. PAST MEDICAL HISTORY:See Below PAST SURGICAL HISTORY:See Below FAMILY HISTORY:See Below SOCIAL HISTORY:See Below HOME MEDICATIONS:See Below ALLERGIES:See Below VITALS:See Below PHYSICAL EXAMINATION: GENERAL: Sitting up in bed, alert, chronically ill-appearing, disheveled in moderate distress speaking in one-word sentences EYE EXAM: normal conjunctiva. PERRL and EOM's grossly intact. OROPHARYNX: no exudate, no erythema, lips, buccal mucosa, and tongue normal and mucous membranes are moist NECK: supple, no nuchal rigidity, no adenopathy, non-tender LUNGS: Diffuse wheezing bilaterally with poor air movement. Normal chest wall mechanics HEART: no murmurs, S1 normal and S2 normal ABDOMEN: abdomen soft, non-tender, normo-active bowel sounds, no masses, no rebound or guarding. UPPER EXTREMITIES: upper extremities are grossly normal. LOWER EXTREMITIES: Mild pitting edema bilaterally. Calves are equal bilateral NEURO EXAM: Normal sensorium, cranial nerves II-XII grossly intact, normal speech, no gross weakness of arms, no gross weakness of legs. MEDICAL DECISION MAKING: Patient is a 65-year-old female with a past medical history as stated above who presents the ER for shortness of breath brought by EMS. She was found to be hypoxic at 70%. She was given 1 neb prior to arrival. She was significantly dyspneic and unable to really talk. She was given hour-long neb treatment, Solu-Medrol, and placed on BiPAP. Labs show mild leukocytosis 11.8 thousand. No anemia. BMP along with LFTs bilirubin was unremarkable. Lipase is unremar kable. Influenza Covid and RSV were negative. Chest x-ray was clean. EKG was unremarkable. Patient remained on BiPAP and received an hour-long neb treatment and steroids. She did improve. She discussed with hospitalist for further evaluation. Triage Nursing notes reviewed. Limited review of prior medical records performed Vital Signs: reviewed and remarkable for no significant abnormalities Differential diagnosis: Differential diagnoses includes but is not limited to pneumonia, bronchitis, COPD/Asthma exacerbation, pneumothorax, pulmonary embolism, congestive heart failure, acute coronary syndrome ER treatment provided: See below Diagnostics interpreted by me: ECG: Sinus rhythm rate of 110 Normal axis No PVCs QTC 481 Cardiac Monitoring: An order was placed for continuous cardiac monitoring. The monitor shows a rate of 90 with sinus rhythm. Laboratory studies: As stated above and show below. Imaging studies: See below Consultation(s): Discussed with hospitalist Barb for further evaluation Procedures: none Critical Care: I have personally spent 35 minutes of critical care time in the direct management of this patient. This includes bedside care, interpretation of diagnostic studies, and testing, discussion with consultants, patient, and family members, and other required patient management activities. This 35 minutes is in excess of all separately billable procedures. Past Med/Surg History Medical History (Updated 04/05/21 @ 11:24 by Faviola Campbell PA-C) Chronic diastolic (congestive) heart failure Diabetes mellitus, type 2 Hyperlipidemia Hypertension Left carotid artery stenosis Nocturnal hypoxemia Osteoarthritis Sleep apnea Tobacco use disorder Surgical History History of bilateral carpal tunnel release History of History of carpal tunnel release RT/LEFT History of cataract surgery RT/LEFT History of section History of colonoscopy History of tooth extraction Family History Mother Family history of diabetes mellitus Sister Family history of diabetes mellitus Brother Family history of diabetes mellitus Social History Smoking Status: Current every day smoker Tobacco Type: Cigarettes Cigarettes Per Day: 1 pack; Second Hand Exposure: No; Hx Alcohol Use: No Hx Substance Use: No Preferred Language: Stateless Communication Ability: Effective Cement Tile Maker Required: No Beliefs That Will Affect Care: None Current Living Situation: Family Current Living Situation Comment: Lived in [facility], with two daughters Feels Safe at Home: Yes Assistive Devices: Denture - Upper, Denture - Lower and Glasses Allergies Allergies Allergy/AdvReac Type Severity Reaction Status Date / Time No Known Allergies Allergy NONE Verified 11/11/19 10:39 Home Meds Home Medications Medication Instructions Recorded Confirmed aspirin 325 mg tablet,delayed 325 mg PO QAM 12/14/17 04/05/21 release atorvastatin 80 mg tablet 80 mg PO HS 12/14/17 04/05/21 carvedilol 25 mg tablet 37.5 mg PO BID 12/14/17 04/05/21 insulin aspart U-100 100 unit/mL See Rx Instructions .ROUTE 12/14/17 04/05/21 subcutaneous solution (Novolog .COMPLEX ml U-100 Insulin aspart) ipratropium 20 mcg-albuterol 100 2 puffs INH Q4H PRN gm 12/14/17 04/05/21 mcg/actuation mist for inhalation (Combivent Respimat) lisinopril 20 mg tablet 40 mg PO QAM 12/14/17 04/05/21 metformin 1,000 mg tablet 1,000 mg PO BID 12/14/17 04/05/21 potassium chloride 10 mEq 10 meq PO QAM 12/14/17 04/05/21 capsule,extended release torsemide 20 mg tablet 20 mg PO QAM 12/14/17 04/05/21 insulin detemir U-100 100 unit/mL 26 units SQ HS ml 12/27/17 04/05/21 subcutaneous solution (Levemir U-100 Insulin) clopidogrel 75 mg tablet (Plavix) 75 mg PO QAM 03/06/19 04/05/21 ezetimibe 10 mg tablet 10 mg PO QAM 11/11/19 04/05/21 cyanocobalamin (vitamin B-12) 1,000 mcg PO DAILY 03/04/20 04/05/21 1,000 mcg capsule amlodipine 2.5 mg tablet 2.5 mg PO DAILY 04/05/21 04/05/21 semaglutide 1 mg/dose (4 mg/3 mL) 1 mg SUBCUT WK 04/05/21 04/05/21 subcutaneous pen injector (Ozempic) Previous Rx's Medication Instructions Recorded tiotropium 2.5 mcg-olodaterol 2.5 2 inh INHALATION DAILY #3 inhaler 09/27/20 mcg/actuation mist for inhalation (Stiolto Respimat) Results & Data (ED) Vital Signs Vital Signs - 24 hr 04/05/21 09:05 04/05/21 09:31 04/05/21 09:42 Temperature Temperature Source Pulse Rate 88 105 H Pulse Rate [Right Finger] Pulse Rate from SpO2 Sensor 105 H Pulse Rhythm Regular Respiratory Rate 24 31 H Respiratory Effort / Characteristics Respiratory Depth Respiratory Pattern Blood Pressure Blood Pressure Mean Pulse Oximetry 99 99 Oxygen Delivery Method Non-rebreather Non-rebreather Oxygen Flow Rate Fraction of Inspired Oxygen Sepsis Recent Fever Within 48 Hours Sepsis New/Unexplained Change in Mental Status Sepsis Action Taken by Nursing 04/05/21 09:44 04/05/21 09:50 04/05/21 09:54 Temperature 37.1 C Temperature Source Oral Pulse Rate 104 H 103 H 100 H Pulse Rate [Right Finger] 100 H Pulse Rate from SpO2 Sensor 104 H Pulse Rhythm Respiratory Rate 26 H 28 H 30 H Respiratory Effort / Characteristics Spontaneous Spontaneous Respiratory Depth Normal Respiratory Pattern Tachypnea Blood Pressure 170/89 H Blood Pressure Mean 116 Pulse Oximetry 99 99 100 Oxygen Delivery Method Non-rebreather Non-rebreather Oxygen Flow Rate 10 Fraction of Inspired Oxygen 60 Sepsis Recent Fever Within 48 Hours No Sepsis New/Unexplained Change in Mental Status N/A Sepsis Action Taken by Nursing Physician Notified 04/05/21 10:00 04/05/21 10:10 Temperature Temperature Source Pulse Rate 96 H 91 H Pulse Rate [Right Finger] Pulse Rate from SpO2 Sensor 97 H 92 H Pulse Rhythm Respiratory Rate 27 H 20 Respiratory Effort / Characteristics Respiratory Depth Respiratory Pattern Blood Pressure Blood Pressure Mean Pulse Oximetry 100 100 Oxygen Delivery Method Oxygen Flow Rate Fraction of Inspired Oxygen Sepsis Recent Fever Within 48 Hours Sepsis New/Unexplained Change in Mental Status Sepsis Action Taken by Nursing Laboratory Data Result diagrams: 04/05/21 10:02 04/05/21 10:02 Lab Results 04/05/21 04/05/21 04/05/21 Range/Units 09:39 10:02 10:02 WBC 11.88 H (4.8-10.8) K/uL RBC 4.66 (4.2-5.4) M/uL Hgb 14.3 (12.0-16.0) g/dL Hct 42.8 (37-47) % MCV 91.8 (80-100) fL MCH 30.7 (25-34) pg MCHC 33.4 (32-36) g/dL RDW Std Deviation 49.7 H (36.4-46.3) fL RDW Coeff of Rasheeda 14.8 H (11.5-14.5) % Plt Count 256 (130-400) K/uL MPV 10.3 (7.4-10.4) fL Immature Gran % (Auto) 0.2 % Neut % (Auto) 82.5 % Lymph % (Auto) 5.9 % [place] % (Auto) 9.3 % Eos % (Auto) 1.9 % Baso % (Auto) 0.2 % Neut # (Auto) 9.82 H (1.4-6.5) K/uL Lymph # (Auto) 0.70 L (1.2-3.4) K/uL [place] # (Auto) 1.10 H (0.11-0.59) K/uL Eos # (Auto) 0.22 (0-0.5) K/uL Baso # (Auto) 0.02 (0-0.2) K/uL Immature Gran # (Auto) 0.02 (0.00-0.02) K/uL Sodium 135 L (136-145) mmol/L Potassium 3.9 (3.5-5.1) mmol/L Chloride 99 (98-107) mmol/L Carbon Dioxide 29 (21-32) mmol/L Anion Gap 7.0 (3-11) BUN 9 (7-18) mg/dl Creatinine 0.52 L (0.6-1.2) mg/dl Est Cr Clr Drug Dosing Not Reportable Est GFR ( Amer) 117.9 ml/min Est GFR (Non-Af Amer) 101.7 ml/min BUN/Creatinine Ratio 17.1 (10-20) Glucose 174 H (70-99) mg/dl Calcium 8.6 (8.5-10.1) mg/dl Total Bilirubin 0.6 (0.2-1) mg/dl AST 8 L (15-37) U/L ALT 22 (12-78) Alkaline Phosphatase 107 (45-117) U/L Troponin I < 0.015 (0-0.045) ng/ml NT-Pro-B Natriuret Pep 509 (0-900) pg/ml Total Protein 7.5 (6.4-8.2) gm/dl Albumin 3.4 (3.4-5.0) gm/dl Globulin 4.1 H (2.5-4.0) gm/dl Albumin/Globulin Ratio 0.8 L (0.9-2) Lipase 64 L (73-393) U/L SARS-CoV-2 (PCR) NEGATIVE (Negative) Influenza Type A (PCR) Negative (Neg) Influenza Type B (PCR) Negative (Neg) RSV (RT-PCR) Negative (Neg) Administered Medications Discontinued Medications Albuterol (Albut/Ipratrop 3mg/0.5mg Neb 3 Ml Vial) 12 ml NEB ONE ONE; Protocol Stop: 04/05/21 09:32 Last Admin: 04/05/21 09:49 Dose: 12 ml Documented by: [id number] Methylprednisolone (Methylprednisolone 125 Mg/2 Ml Vial) 60 mg IV NOW STA Stop: 04/05/21 09:32 Last Admin: 04/05/21 10:04 Dose: 60 mg Documented by: [id number] Imaging Data Radiologist's Impression: Chest X-Ray 04/05/21 09:31 SINGLE VIEW CHEST CLINICAL HISTORY: Atypical chest pain. FINDINGS: 2 AP, portable, upright chest radiographs are compared to chest x-ray and chest CT dated 11/11/2019. The examination is degraded by portable technique, apical lordotic positioning, and large body habitus. The heart is top normal for projection noting atherosclerotic calcification of the thoracic aorta. There is bibasilar atelectasis. The lungs and pleural spaces are otherwise clear. No pneumothorax is seen. The skeletal structures are osteopenic. The bony thorax is grossly intact. IMPRESSION: No acute cardiopulmonary abnormality. ACT 112: Negative or not required by law. Electronically signed by: Garrett Fonseca M.D. 04/05/2021 10:09 AM Discharge Plan Visit Data Chief Complaint: Shortness of Breath/Dyspnea ED Provider: Gordon Juárez Discharge Problem: Respiratory failure, Hypoxia, COPD (chronic obstructive pulmonary disease), Shortness of breath Forms Stand Alone Forms: [facility] [employer] Prescriptions Prescriptions: No Action aspirin 325 mg tablet,delayed release (DR/EC) 325 mg PO QAM RF: 0 atorvastatin 80 mg tablet 80 mg PO HS RF: 0 carvedilol 25 mg tablet 37.5 mg PO BID RF: 0 insulin aspart U-100 [Novolog U-100 Insulin aspart] 100 unit/mL solution See Rx Instructions .ROUTE .COMPLEX RF: 0 ipratropium-albuterol [Combivent Respimat] 20-100 mcg/actuation mist 2 puffs INH Q4H PRN (Reason: shortness of breath) RF: 0 lisinopril 20 mg tablet 40 mg PO QAM RF: 0 metformin 1,000 mg tablet 1,000 mg PO BID RF: 0 potassium chloride 10 mEq capsule, extended release 10 meq PO QAM RF: 0 torsemide 20 mg tablet 20 mg PO QAM RF: 0 insulin detemir U-100 [Levemir U-100 Insulin] 100 unit/mL solution 26 units SQ HS RF: 0 Stiolto Respimat 2.5-2.5 mcg/actuation mist 2 inh inhalation DAILY Qty: 3 RF: 3 clopidogrel [Plavix] 75 mg tablet 75 mg PO QAM RF: 0 cyanocobalamin (vitamin B-12) 1,000 mcg capsule 1,000 mcg PO DAILY RF: 0 ezetimibe 10 mg tablet 10 mg PO QAM RF: 0 amlodipine 2.5 mg tablet 2.5 mg PO DAILY RF: 0 Ozempic 1 mg/dose (4 mg/3 mL) pen injector 1 mg SUBCUT WK RF: 0 Referrals Referrals: Jeremie Mcclellan, [Primary Care Provider] -
--- NOTE | 2021-04-05 10:10 | XRay Report ---
SINGLE VIEW CHEST CLINICAL HISTORY: Atypical chest pain. FINDINGS: 2 AP, portable, upright chest radiographs are compared to chest x-ray and chest CT dated . The examination is degraded by portable technique, apical lordotic positioning, and large carlos dy habitus. The heart is top normal for projection noting atherosclerotic calcification of the thorac ic aorta. There is bibasilar atelectasis. The lungs and pleural spaces are otherwise clear. No pneumo thorax is seen. The skeletal structures are osteopenic. The bony thorax is grossly intact. IMPRESSION: No acute cardiopulmonary abnormality. ACT 112: Negative or not required by law. Electronically signed by: Garrett Fonseca M.D. 04/05/2021 10:09 AM
[2021-04-05 10:24] LABS: Basophils # (auto) 0.02 K/uL (0-0.2); Basophils % (auto) 0.2 %; Eosinophils # (auto) 0.22 K/uL (0-0.5); Eosinophils % (auto) 1.9 %; Hematocrit (blood only) 42.8 % (37-47); Hemoglobin 14.3 g/dL (12.0-16.0); Immature Granulocytes # (auto) 0.02 K/uL (0.00-0.02); Immature Granulocytes % (auto) 0.2 %; Lymphocytes % (auto) 5.9 %; Mean Corpuscular Hemoglobin 30.7 pg (25-34); Mean Corpuscular Hgb Conc 33.4 g/dL (32-36); Mean Corpuscular Volume 91.8 fL (80-100); Mean Platelet Volume 10.3 fL (7.4-10.4); Monocytes % (auto) 9.3 %; Neutrophils # (auto) 9.82 K/uL (1.4-6.5); Neutrophils % (auto) 82.5 %; Platelet Count 256 K/uL (130-400); RDW Coefficient of Variation 14.8 % (11.5-14.5); RDW Standard Deviation 49.7 fL (36.4-46.3); Red Blood Count 4.66 M/uL (4.2-5.4); White Blood Count 11.88 K/uL (4.8-10.8)
[2021-04-05 10:37] LABS: Influenza A virus by PCR Negative (Neg); Influenza B virus by PCR Negative (Neg); RSV by PCR Negative (Neg); SARS CoV2 RNA(COVID-19) InHosp NEGATIVE (Negative)
[2021-04-05 10:49] LABS: Alanine Aminotransferase 22 (12-78); Albumin Level 3.4 gm/dl (3.4-5.0); Aspartate Aminotransferase 8 U/L (15-37); BUN Creatinine Ratio 17.1 (10-20); Blood Urea Nitrogen 9 mg/dl (7-18); Calcium 8.6 mg/dl (8.5-10.1); Carbon Dioxide 29 mmol/L (21-32); Chloride 99 mmol/L (98-107); Est GFR (African American) 117.9 ml/min; Est GFR (Non-African American) 101.7 ml/min; Glucose 174 mg/dl (70-99); Lipase 64 U/L (73-393); Potassium 3.9 mmol/L (3.5-5.1); Sodium 135 mmol/L (136-145)
[2021-04-05 10:54] LABS: Albumin Globulin Ratio 0.8 (0.9-2); Alkaline Phosphatase 107 U/L (45-117); Bilirubin,Total 0.6 mg/dl (0.2-1); Globulin 4.1 gm/dl (2.5-4.0); NT Pro B Type Natriuretic Pept 509 pg/ml (0-900); Total Protein 7.5 gm/dl (6.4-8.2); Troponin I < 0.015 ng/ml (0-0.045)
--- NOTE | 2021-04-05 11:27 | History & Physical Report ---
Date of Service April 05, 2021 Assessment & Plan (1) COPD exacerbation: Plan: - Admit to tele -patient was administered IV Solu-Medrol 60 mg in the ER, given 1 hour-long nebulizer treatment, and placed on BiPAP with improvement in her hypoxia, was 70% O2 sats at home on room air. She is now improved on BiPAP with FiO2 at 60%. At home she wears Bipap with 7 L O2 HS, but none during the day routinely. wheezing sounds minimal at this point. - wean O2 as tolerated -Continue Solu-Medrol 40 mg twice daily IV, pulmonary toilet, flutter, incentive spirometry, check sputum culture as she is producing large amount of sputum -CXR reviewed, appears to be fairly clear -Check D-dimer, if positive will order a CTA to rule out PE -Smoking cessation encouraged at bedside, she continues to smoke 1 pack daily and has since being in the eighth grade. -Continue Stiolto inhaler, hold Combivent (2) Acute respiratory failure with hypoxia: Plan: -Secondary to above, plan as outlined above (3) Tobacco use disorder: Plan: -Cessation encouraged at bedside, smokes 1 pack/day times ~50+ years -Will order nicotine patch (4) Chronic diastolic (congestive) heart failure: Plan: -History of such, continue Lasix, aspirin, atorvastatin, amlodipine-she did not take any of her morning medications today - Will hold carvedilol for now to prevent further bronchospasm, likely can resume tomorrow (5) Diabetes mellitus, type 2: Plan: -ISS with Accu-Cheks ACHS, continue Levemir 20 units at bedtime, takes Ozempic once a week on Mondays. -Check A1c, last was 6.3 in September 2020 -Hold Metformin (6) Hypertension: Plan: -Antihypertensives as above, BP is currently 193/90, will administer her morning meds now - hold carvedilol as above (7) Hyperlipidemia: Plan: -Continue statin therapy DVT ppx: - teds, scds, lovenox subq CODE: Full code Dispo: From home, likely to remain in the hospital x 1-2 days History of Present Illness Chief Complaint: Shortness of breath Primary Care Provider: Jeremie Mcclellan, This is a 65-year-old female with PMHx of COPD, chronic diastolic CHF, DM type II, HTN, HLD, sleep apnea, chronic tobacco use since she was 18 years old and currently uses 1 ppd. She uses Bipap with 7 L O2 HS routinely at home. She presents with acute shortness of breath via EMS. She states that this has been going on and getting worse for approximately 48 hours. Patient reports that she just could not breathe this morning so called EMS. She admits to bringing up large amounts of sputum production but cannot characterize it to me. She denies any fevers, chills or sweats. She continues to smoke. Lives at home with 2 daughters. She was found to be 70% on room air by EMS, now has been placed on BiPAP after completing a 1 hour-long neb, receiving Solu-Medrol, with good improvement. Her Covid and RSV swab are negative. Allergies Allergy/AdvReac Type Severity Reaction Status Date / Time No Known Allergies Allergy NONE Verified 11/11/19 10:39 Home Medications Medication Instructions Recorded Confirmed Type aspirin 325 mg tablet,delayed 325 mg PO QAM 12/14/17 04/05/21 History release atorvastatin 80 mg tablet 80 mg PO HS 12/14/17 04/05/21 History carvedilol 25 mg tablet 37.5 mg PO BID 12/14/17 04/05/21 History insulin aspart U-100 100 unit/mL See Rx Instructions .ROUTE 12/14/17 04/05/21 History subcutaneous solution (Novolog .COMPLEX ml U-100 Insulin aspart) ipratropium 20 mcg-albuterol 100 2 puffs INH Q4H PRN gm 12/14/17 04/05/21 History mcg/actuation mist for inhalation (Combivent Respimat) lisinopril 20 mg tablet 40 mg PO QAM 12/14/17 04/05/21 History metformin 1,000 mg tablet 1,000 mg PO BID 12/14/17 04/05/21 History potassium chloride 10 mEq 10 meq PO QAM 12/14/17 04/05/21 History capsule,extended release torsemide 20 mg tablet 20 mg PO QAM 12/14/17 04/05/21 History insulin detemir U-100 100 unit/mL 26 units SQ HS ml 12/27/17 04/05/21 History subcutaneous solution (Levemir U-100 Insulin) clopidogrel 75 mg tablet (Plavix) 75 mg PO QAM 03/06/19 04/05/21 History ezetimibe 10 mg tablet 10 mg PO QAM 11/11/19 04/05/21 History cyanocobalamin (vitamin B-12) 1,000 mcg PO DAILY 03/04/20 04/05/21 History 1,000 mcg capsule tiotropium 2.5 mcg-olodaterol 2.5 2 inh INHALATION DAILY #3 inhaler 09/27/20 04/05/21 Rx mcg/actuation mist for inhalation (Stiolto Respimat) amlodipine 2.5 mg tablet 2.5 mg PO DAILY 04/05/21 04/05/21 History semaglutide 1 mg/dose (4 mg/3 mL) 1 mg SUBCUT WK 04/05/21 04/05/21 History subcutaneous pen injector (Ozempic) Past Med/Surg History Medical History Chronic diastolic (congestive) heart failure Diabetes mellitus, type 2 Hyperlipidemia Hypertension Left carotid artery stenosis Nocturnal hypoxemia Osteoarthritis Sleep apnea Tobacco use disorder Surgical History History of bilateral carpal tunnel release History of History of carpal tunnel release RT/LEFT History of cataract surgery RT/LEFT History of section History of colonoscopy History of tooth extraction Family History Mother Family history of diabetes mellitus Sister Family history of diabetes mellitus Brother Family history of diabetes mellitus Social History Smoking Status: Current every day smoker Tobacco Type: Cigarettes Cigarettes Per Day: 1 pack; Second Hand Exposure: No; Hx Alcohol Use: No Hx Substance Use: No Preferred Language: Jamaican Communication Ability: Effective Kelp Or Seagrass Gatherer Required: No Beliefs That Will Affect Care: None Current Living Situation: Family Current Living Situation Comment: Lived in [facility], with two daughters Feels Safe at Home: Yes Assistive Devices: Oxygen - at Night Review of Systems Review of Systems: Constitutional: No fever, sweats or chills Eyes: No diplopia, no worsening or blurred vision ENT: normal hearing, no trouble swallowing Respiratory: + As per HPI, + cough, sputum, dyspnea at rest and on exertion Cardiovascular: No chest pain, tightness or palpitations Abdomen: No pain, nausea, vomiting, diarrhea or constipation Musculoskeletal: No joint pain, calf pain, swelling Neurologic: No weakness, numbness/tingling, or balance problems Psychiatric: No anxiety or depression Skin: No rash or itch Physical Exam Physical Exam: General: awake, alert, no apparent distress, + obese with BMI 47.7 Head: Normocephalic, atraumatic ENT: PERRL, EOMI, no pharyngeal exudate, mucous membranes moist Chest: On BiPAP, breath sounds with moderate wheezing throughout, no rales or rhonchi Cardiac: Regular rate and rhythm, no murmur, no JVD, normal peripheral pulses, good capillary refill Abdominal: NABS x 4 quadrants, soft, nondistended, nontender to palpation, no rebound or guarding Extremities: + Chronic venous stasis changes, normal inspection, no peripheral edema or erythema, calfs nontender to palpation Psych: Normal mood and affect Neuro: AAO x 3, strength intact bilaterally and rated 5/5, no motor deficits, speech is clear, no peripheral sensory deficits Results & Data Results & Data ([facility]) Vital Signs (Past 12 Hours) Vital Signs Temp Pulse Pulse Resp BP Pulse Ox 04/05/21 10:10 91 H 20 100 04/05/21 10:00 96 H 27 H 100 04/05/21 09:54 100 H 30 H 100 04/05/21 09:50 103 H 100 H 28 H 99 04/05/21 09:44 37.1 C 104 H 26 H 170/89 H 99 04/05/21 09:42 105 H 31 H 99 04/05/21 09:31 88 24 99 Laboratory Results 04/05/21 04/05/21 04/05/21 10:02 10:02 09:39 WBC 11.88 H RBC 4.66 Hgb 14.3 Hct 42.8 MCV 91.8 MCH 30.7 MCHC 33.4 RDW Std Deviation 49.7 H RDW Coeff of Rasheeda 14.8 H Plt Count 256 MPV 10.3 Immature Gran % (Auto) 0.2 Neut % (Auto) 82.5 Lymph % (Auto) 5.9 [place] % (Auto) 9.3 Eos % (Auto) 1.9 Baso % (Auto) 0.2 Neut # (Auto) 9.82 H Lymph # (Auto) 0.70 L [place] # (Auto) 1.10 H Eos # (Auto) 0.22 Baso # (Auto) 0.02 Immature Gran # (Auto) 0.02 Sodium 135 L Potassium 3.9 Chloride 99 Carbon Dioxide 29 Anion Gap 7.0 BUN 9 Creatinine 0.52 L Est Cr Clr Drug Dosing Not Reportable Est GFR ( Amer) 117.9 Est GFR (Non-Af Amer) 101.7 BUN/Creatinine Ratio 17.1 Glucose 174 H Calcium 8.6 Total Bilirubin 0.6 AST 8 L ALT 22 Alkaline Phosphatase 107 Troponin I < 0.015 NT-Pro-B Natriuret Pep 509 Total Protein 7.5 Albumin 3.4 Globulin 4.1 H Albumin/Globulin Ratio 0.8 L Lipase 64 L SARS-CoV-2 (PCR) NEGATIVE Influenza Type A (PCR) Negative Influenza Type B (PCR) Negative RSV (RT-PCR) Negative Diagnostic Findings Chest X-Ray 04/05/21 09:31 SINGLE VIEW CHEST CLINICAL HISTORY: Atypical chest pain. FINDINGS: 2 AP, portable, upright chest radiographs are compared to chest x-ray and chest CT dated 11/11/2019. The examination is degraded by portable technique, apical lordotic positioning, and large body habitus. The heart is top normal for projection noting atherosclerotic calcification of the thoracic aorta. There is bibasilar atelectasis. The lungs and pleural spaces are otherwise clear. No pneumothorax is seen. The skeletal structures are osteopenic. The bony thorax is grossly intact. IMPRESSION: No acute cardiopulmonary abnormality. ACT 112: Negative or not required by law. Electronically signed by: Garrett Fonseca M.D. 04/05/2021 10:09 AM Code Status & VTE Plan Code Status Full code-discussed with the patient at bedside Supervising Physician Co-Signing Physician Notes see supplemental communication note. DO Anderson
--- NOTE | 2021-04-05 12:55 | Communication Note ---
Date of Service: April 05, 2021 65 yo F with diabetes who is an active smoker presents with acute worsening of shortness of breath 2 days ago. She reports a chronic cough from smoking and states that two days ago this got worse and she became more short of breath with exertion. She denies any sputum changes and no fevers or chills. Denies any chest pain, weight gain, swelling, urinary symptoms, changes in her stool, hematochezia or other new issues. She reports a h/o heart failure and states she has been taking her medications. She has been compliant with her home inhaler, also. Reports that she is trying to quit smoking, including trial of Chantix but she started smoking again because of stress. She reports 1 ppd use. On physical exam she is mentating clearly and answering questions, following instructions. She is on BIPAP therapy and is not working to breathe. Lungs are diminished throughout and she exhibits a junky cough. Cardiac exam reveals S1/2 without m/g/r and abdomen is soft, NT, ND without guarding. She was taken off the BIPAP in the ER and is requiring 4 LPM to keep her O2 saturation 91-92%. Nurse was notified of the change and will communicate to respiratory therapist. She continues on monitor. She is hypertensive with a BP of 172/109 but has just been on BIPAP therapy and received an hour long neb with IV steroids. Will reassess on the floor. Also, will need to increase insulin to cover the hyperglycemia from the steroids. Agree with plan above with continued IV steroids, scheduled bronchodilator therapy and oxygen supplementation as needed. Will ensure she is on Mucinex as a decongestant and utilize flutter valve and other pulmonary toilet methods to help keep airways clear. Will check D-dimer to rule out PE in setting of acute hypoxia with a clear CXR although COPD exacerbation is considered the main diagnosis to explain her symptoms. Dispo to PCU. If D-dimer is positive will proceed with a CTA of chest to rule out PE and bilateral lower extremity us to rule out DVT. Nighat Barron DO [facility] Hospitalist
[2021-04-05] MEDS ORDERED: PHARMACY GLYCEMIC MGMT CONSULT PRN (13:08)
[2021-04-05] MEDS ORDERED: INSULIN ASPART PER UNIT SC SCH (13:15)
[2021-04-05 13:16] LABS: D Dimer 410 ug/L FEU (0-500)
[2021-04-05] MEDS ORDERED: CARBOHYDRATES FOR HYPOGLYCEMIA PO PRN (13:19)
[2021-04-05] MEDS ORDERED: DEXTROSE 50% 50 ML SYRINGE IV PRN (13:19)
[2021-04-05] MEDS ORDERED: ONDANSETRON INJ 2 MG/ML 2 ML VIAL IV PRN (13:19)
[2021-04-05] MEDS ORDERED: ACETAMINOPHEN 325 MG TAB PO PRN (13:19)
[2021-04-05] MEDS ORDERED: GLUCOSE 40% GEL 15 GM TUBE PO PRN (13:19)
[2021-04-05] MEDS ORDERED: GLUCAGON FOR INJ 1 MG VIAL SQ PRN (13:19)
[2021-04-05] MEDS ORDERED: GLUCOSE 10 TABS/TUBE PO PRN (13:19)
[2021-04-05] MEDS: NICOTINE 21 MG/24 HR TDSY TD SCH ×2 (13:51→13:59)
[2021-04-05] MEDS: amLODIPine BESYLATE 5 MG TAB PO SCH (13:51)
[2021-04-05] MEDS: CLOPIDOGREL BISULFATE 75 MG TAB PO SCH (13:52)
[2021-04-05] MEDS: POTASSIUM CHLORIDE 10 MEQ TABCR PO SCH (13:52)
--- NOTE | 2021-04-05 14:58 | Pharmacy Report ---
Pharmacy Glycemic Short Note 2 - Date of Service April 05, 2021 - Glycemic Short BSG Results (Last 24 hours): 04/05/21 04/05/21 10:02 13:55 Glucose 174 H POC Glucose 186 H OUTPATIENT ANTIDIABETIC REGIMEN: * Levemir 26 units HS * Novolog 30 units with lunch and dinner * metformin 1000 mg PO BIDM * Ozempic 1 mg SQ weekly ASSESSMENT: * Ms Simmons is a 65 y/o F with a PMH of T2DM who presents with difficulty breathing. * Patient started on Solu-Medrol 60 mg IV x 1 then 40 mg IV q12 hours. * Per previous patient data, patient is very sensitive to steroids but once steroids are discontinued, insulin requirements drastically decrease. * Start with home dose of Levemir. Per nurse, patient has poor PO intake right now. If BSG < 140 mg/dL then reduce Levemir by 20%. * Novolog with CF 10 CR of 4 based upon previous hospital data. PLAN FOR INPATIENT GLYCEMIC CONTROL: * Hold outpatient oral diabetes medications * Basal insulin * Lantus 26 units SQ HS (If bsg < 140 mg/dL Lantus 20 units) * Bolus insulin * NovoLog per scale ACHS or Q6hrs while NPO * Goal Range: Low 110 mg/dL - High 140 mg/dL * Correction Factor: 10 mg/dL/unit * Nutritional / Prandial insulin per carb ratio of 1 unit per 4 grams CHO consumed PLAN FOR DISCHARGE: * HbA1C ordered
[2021-04-05] MEDS: EZETIMIBE 10 MG TABLET PO SCH (15:07)
[2021-04-05] MEDS: ASPIRIN 325 MG ECTAB PO SCH (15:07)
[2021-04-05] MEDS: lisinopril 20 MG TAB PO SCH (15:07)
[2021-04-05] MEDS: ALBUT/IPRATROP 3MG/0.5MG NEB 3 ML VIAL NEB SCH ×3 (15:29→22:55)
[2021-04-05] MEDS: methylPREDNISolone 40 MG in SYRINGE 0 ML IV SCH (19:33)
[2021-04-05] MEDS ORDERED: INSULIN DETEMIR FLEXPEN/FLEX TOUCH 100 UNITS/ML 3ML SC SCH (21:00)
[2021-04-05] MEDS ORDERED: INSULIN DETEMIR SQ SCH (21:00)
[2021-04-05] MEDS ORDERED: methylPREDNISolone 40 MG in SYRINGE 0 ML IV SCH (21:00)
[2021-04-05] MEDS: INSULIN ASPART PER UNIT SC SCH ×2 (21:20→21:50)
[2021-04-05] MEDS: TORSEMIDE 20 MG TAB PO SCH (21:20)
[2021-04-05] MEDS: ATORVASTATIN 40 MG TAB PO SCH (21:47)
[2021-04-05] MEDS: INSULIN DETEMIR FLEXPEN/FLEX TOUCH 100 UNITS/ML 3ML SC SCH (21:51)
[2021-04-06] MEDS: ALBUT/IPRATROP 3MG/0.5MG NEB 3 ML VIAL NEB SCH ×3 (01:46→10:50)
[2021-04-06] MEDS: methylPREDNISolone 40 MG in SYRINGE 0 ML IV SCH ×3 (03:53→20:30)
[2021-04-06 05:47] LABS: Hematocrit (blood only) 40.5 % (37-47); Hemoglobin 13.8 g/dL (12.0-16.0); Mean Corpuscular Hgb Conc 34.1 g/dL (32-36); Mean Platelet Volume 10.3 fL (7.4-10.4); Platelet Count 280 K/uL (130-400); RDW Coefficient of Variation 14.6 % (11.5-14.5); RDW Standard Deviation 49.7 fL (36.4-46.3); Red Blood Count 4.45 M/uL (4.2-5.4); White Blood Count 10.57 K/uL (4.8-10.8)
--- NOTE | 2021-04-06 06:18 | Electrocardiogram Report ---
Test Reason : Blood Pressure : / mmHG Vent. Rate : 110 BPM Atrial Rate : 110 BPM P-R Int : 160 ms QRS Dur : 128 ms QT Int : 356 ms P-R-T Axes : 077 040 019 degrees QTc Int : 481 ms Poor data quality, interpretation may be adversely affected Sinus tachycardia Possible Left atrial enlargement Right bundle branch block Abnormal ECG When compared with ECG of 12-NOV-2019 06:34, No significant change was found Confirmed by Kenan Mulligan ([id number]) on 04/06/2021 6:18:29 AM Referred By: REFERRED SELF Confirmed By:Kenan Mulligan
[2021-04-06 06:29] LABS: Albumin Globulin Ratio 0.8 (0.9-2); Albumin Level 3.3 gm/dl (3.4-5.0); BUN Creatinine Ratio 31.8 (10-20); Bilirubin,Total 0.3 mg/dl (0.2-1); Calcium 9.2 mg/dl (8.5-10.1); Creatinine Clr Calc Pharmacy 128.4 ml/min; Est GFR (African American) 111.8 ml/min; Est GFR (Non-African American) 96.5 ml/min; Total Protein 7.3 gm/dl (6.4-8.2)
[2021-04-06] MEDS: INSULIN ASPART PER UNIT SC SCH ×4 (09:49→20:36)
[2021-04-06] MEDS: ENOXAPARIN INJ 40 MG/0.4 ML SYR SQ SCH (09:54)
[2021-04-06] MEDS: ASPIRIN 325 MG ECTAB PO SCH (09:54)
[2021-04-06] MEDS: POTASSIUM CHLORIDE 10 MEQ TABCR PO SCH (09:55)
[2021-04-06] MEDS: EZETIMIBE 10 MG TABLET PO SCH (09:55)
[2021-04-06] MEDS: lisinopril 20 MG TAB PO SCH (09:55)
[2021-04-06] MEDS: TORSEMIDE 20 MG TAB PO SCH (09:56)
[2021-04-06] MEDS: NICOTINE 21 MG/24 HR TDSY TD SCH (09:56)
[2021-04-06] MEDS: amLODIPine BESYLATE 5 MG TAB PO SCH (10:51)
[2021-04-06] MEDS: CLOPIDOGREL BISULFATE 75 MG TAB PO SCH (10:55)
--- NOTE | 2021-04-06 13:27 | Pharmacy Report ---
Pharmacy Glycemic Short Note 2 - Date of Service April 06, 2021 - Glycemic Short BSG Results (Last 24 hours): 04/05/21 04/05/21 04/05/21 13:55 17:57 20:55 Glucose POC Glucose 186 H 201 H 256 H 04/06/21 04/06/21 04/06/21 05:07 08:57 13:09 Glucose 190 H POC Glucose 212 H 193 H OUTPATIENT ANTIDIABETIC REGIMEN: * Levemir 26 units HS * Novolog 30 units with lunch and dinner * metformin 1000 mg PO BIDM * Ozempic 1 mg SQ weekly ASSESSMENT: 04/06/21 * BSGs yesterday were 186-201-256 mg/dL. Patient did not receive any insulin until HS for unknown reasons. Then received 26 units of Levemir (home dose) plus 12 units of Novolog. * Fasting BSG was 212 mg/dL. * Steroids increased to Solu-Medrol 40 mg IV q8 hours. * Tighten Novolog due to this steroid increase. Hesitant to increase Levemir as documented below. * Overnight checks to ensure 24 hour coverage. Background * Ms Simmons is a 65 y/o F with a PMH of T2DM who presents with difficulty breathing. * Patient started on Solu-Medrol 60 mg IV x 1 then 40 mg IV q12 hours. * Per previous patient data, patient is very sensitive to steroids but once steroids are discontinued, insulin requirements drastically decrease. * Start with home dose of Levemir. Per nurse, patient has poor PO intake right now. If BSG < 140 mg/dL then reduce Levemir by 20%. * Novolog with CF 10 CR of 4 based upon previous hospital data. PLAN FOR INPATIENT GLYCEMIC CONTROL: * Hold outpatient oral diabetes medications * Basal insulin * Lantus 26 units SQ HS (If bsg < 140 mg/dL Lantus 20 units) * Bolus insulin * NovoLog per scale ACHS or Q6hrs while NPO * Goal Range: Low 110 mg/dL - High 140 mg/dL * Correction Factor: 8 mg/dL/unit * Nutritional / Prandial insulin per carb ratio of 1 unit per 3 grams CHO consumed PLAN FOR DISCHARGE: * HbA1C ordered
[2021-04-06] MEDS ORDERED: ALBUT/IPRATROP 3MG/0.5MG NEB 3 ML VIAL NEB PRN (14:49)
--- NOTE | 2021-04-06 16:15 | Hospitalist Progress Note ---
Date of Service April 06, 2021 Assessment & Plan (1) COPD exacerbation: Plan: BIPAP on admission for first 3 hours Subsequently, now requiring minimal nasal cannula, does not require daytime oxygen at baseline Persistent wheezing and dyspnea with minimal exertion, conversational dyspnea however, this is an improvement from yesterday where she was so tight there was diminished breath sounds throughout and no wheezing Continue IV steroids, bronchodilators and add Rocephin for inpatient COPD guidelines. She is afebrile and no pneumonia was present on initial chest x-ray Again she reinforces no concerns for swelling orthopnea and does not examine is hypervolemic. -Smoking cessation encouraged at bedside, she continues to smoke 1 pack daily and has since being in the eighth grade. -Continue Stiolto inhaler, hold Combivent (2) Acute respiratory failure with hypoxia: Plan: -Secondary to above, plan as outlined above (3) Tobacco use disorder: Plan: -Cessation encouraged at bedside, smokes 1 pack/day times ~50+ years, nicotine patch (4) Chronic diastolic (congestive) heart failure: Plan: compensated, cont Lasix, aspirin, atorvastatin, amlodipine - Will hold carvedilol for now to prevent further bronchospasm, likely can resume tomorrow (5) Diabetes mellitus, type 2: Plan: -ISS with Accu-Cheks ACHS, continue Levemir 20 units at bedtime, takes Ozempic once a week on Mondays. Cont basal bolus insulin while hospitalized. (6) Hypertension: Plan: Blood pressure slightly elevated likely secondary to steroid administration. Continue current therapy, notably held Coreg to avoid bronchospasm. (7) DVT prophylaxis: Plan: Full code Lovenox Disposition-to home when medically stable Nighat Barron DO [facility] Hospitalist Admission and Anticipated Discharge Date Admission Date: April 05, 2021 Subjective 65 yo smoker with COPD exacerbation +cough, nonproductive using flutter valve still SOB hans with any exertion afebrile still wheezing Review of Systems Review of Systems: All systems were reviewed and negative except as indicated in subjective above. Physical Exam Physical Exam: CONSTITUTIONAL: obese, vitals as above, generally appears SOB EYES: normal conjunctivae, no scleral icterus ENT: external ear and nose normal, oropharynx clear, MMM NECK: trachea midline RESPIRATORY: wheezing throughout all lung moreno, +conversational dyspnea. No crackles or rales. CARDIOVASCULAR: regular rate and rhythm, S1 and 2 heard without murmurs, gallops or rubs, no JVD, no peripheral edema CHEST: inspection of chest was normal GASTROINTESTINAL: soft, nontender, nondisteded, no guarding MUSCULOSKELETAL: strength 5/5 throughout, head is normocephalic and atraumatic SKIN: warm and dry, NEUROLOGIC: CN 2-12 grossly intact, no sensory deficit, normal cognition, normal speech, no tremor, no gross focal deficits. PSYCHIATRIC: alert cooperative and oriented to person, place and time. Results & Data Results & Data ([facility]) Vital Signs (Past 12 Hours) Vital Signs Pulse Resp BP Pulse Ox Pulse Ox 04/06/21 10:51 90 18 94 04/06/21 08:00 108 H 27 H 172/79 H 95 95 04/06/21 07:25 103 H 20 96 Laboratory Results Short CBC 04/06/21 Range/Units 05:07 WBC 10.57 (4.8-10.8) K/uL Hgb 13.8 (12.0-16.0) g/dL Hct 40.5 (37-47) % Plt Count 280 (130-400) K/uL BMP 04/06/21 05:07 Sodium 135 L Potassium 4.0 Chloride 100 Carbon Dioxide 29 BUN 19 H D Creatinine 0.61 Glucose 190 H Calcium 9.2 Liver Function 04/06/21 Range/Units 05:07 Total Bilirubin 0.3 (0.2-1) mg/dl AST 5 L (15-37) U/L ALT 21 (12-78) Alkaline Phosphatase 100 (45-117) U/L Albumin 3.3 L (3.4-5.0) gm/dl Medications Administered Current Inpatient Medications Acetaminophen (Acetaminophen 325 Mg Tab) 650 mg PO Q4H PRN PRN Reason: Moderate Pain Stop: 05/05/21 13:18 Albuterol (Albut/Ipratrop 3mg/0.5mg Neb 3 Ml Vial) 3 ml NEB Q4R PRN; Protocol PRN Reason: Shortness Of Breath Or Wheezing Stop: 05/05/21 14:59 Amlodipine Besylate (Amlodipine Besylate 5 Mg Tab) 2.5 mg PO DAILY [facility] Stop: 05/05/21 13:14 Last Admin: 04/06/21 10:51 Dose: 2.5 mg Documented by: Aspirin (Aspirin 325 Mg Ectab) [facility] [place] Stop: 05/05/21 13:14 Last Admin: 04/06/21 09:54 Dose: 325 mg Documented by: Atorvastatin Calcium (Atorvastatin 40 Mg Tab) 80 mg PO HS [facility] Stop: 05/05/21 20:59 Last Admin: 04/05/21 21:47 Dose: 80 mg Documented by: Clopidogrel Bisulfate (Clopidogrel Bisulfate 75 Mg Tab) 75 [facility] [place] Stop: 05/05/21 13:14 Last Admin: 04/06/21 10:55 Dose: 75 mg Documented by: Dextrose (Dextrose 50% 50 Ml Syringe) 25 - 50 ml IV UD PRN; Protocol PRN Reason: Hypoglycemia Protocol Stop: 05/05/21 13:18 Ezetimibe (Ezetimibe 10 Mg Tablet) 10 mg PO [facility] Stop: 05/05/21 13:14 Last Admin: 04/06/21 09:55 Dose: 10 mg Documented by: Enoxaparin Sodium (Enoxaparin Inj 40 Mg/0.4 Ml Syr) 40 mg SQ [facility] Stop: 05/06/21 08:59 Last Admin: 04/06/21 09:54 Dose: 40 mg Documented by: Glucagon (Glucagon For Inj 1 Mg Vial) 1 mg SQ UD PRN; Protocol PRN Reason: Hypoglycemia Protocol Stop: 05/05/21 13:18 Glucose (Glucose 10 Tabs/Tube) 4 - 8 tabs PO UD PRN; Protocol PRN Reason: Hypoglycemia Protocol Stop: 05/05/21 13:18 Glucose (Glucose 40% Gel 15 Gm Tube) 15 - 30 gm PO UD PRN; Protocol PRN Reason: Hypoglycemia Protocol Stop: 05/05/21 13:18 Methylprednisolone 40 mg/ (Syringe) 0.64 mls @ 1.5 mls/min IV Q8H [facility] Stop: 05/05/21 18:59 Last Admin: 04/06/21 09:56 Dose: 1.5 mls/min Documented by: Insulin Aspart (Insulin Aspart Per Unit) 0 units SC ACHS [facility] Stop: 05/05/21 16:29 Last Admin: 04/06/21 14:16 Dose: 16 units Documented by: Insulin Aspart (Insulin Aspart Per Unit) 0 units SC 0000,[id number] [facility] Stop: 04/07/21 04:01 Insulin Detemir (Insulin Detemir Flexpen/Flex Touch 100 Units/Ml 3ml) 0 units SC HS [facility]; Protocol Stop: 05/05/21 20:59 Last Admin: 04/05/21 21:51 Dose: 26 units Documented by: Lisinopril (Lisinopril 20 Mg Tab) 40 mg PO [facility] Stop: 05/05/21 13:14 Last Admin: 04/06/21 09:55 Dose: 40 mg Documented by: Miscellaneous (Carbohydrates For Hypoglycemia ) 15 - 30 gm PO UD PRN PRN Reason: Hypoglycemia Protocol Stop: 05/05/21 13:18 Miscellaneous (Remove Nicoderm Patch) 1 ea N/A DAILY@0859 [facility] Stop: 05/06/21 08:58 Last Admin: 04/06/21 09:53 Dose: Not Given Documented by: Miscellaneous Information (Pharmacy Glycemic Mgmt Consult) 1 ea N/A UD PRN; Protocol PRN Reason: Consult Stop: 05/05/21 13:07 Nicotine (Nicotine 21 Mg/24 Hr Tdsy) 21 mg TD [facility] Stop: 05/05/21 13:18 Last Admin: 04/06/21 09:56 Dose: Not Given Documented by: Ondansetron HCl (Ondansetron Inj 2 Mg/Ml 2 Ml Vial) 4 mg IV Q4H PRN PRN Reason: Nausea And Vomiting Stop: 05/05/21 13:18 Potassium Chloride (Potassium Chloride 10 Meq Tabcr) 10 meq PO [facility] Stop: 05/05/21 13:14 Last Admin: 04/06/21 09:55 Dose: 10 meq Documented by: Torsemide (Torsemide 20 Mg Tab) 20 mg PO [facility] Stop: 05/05/21 14:29 Last Admin: 04/06/21 09:56 Dose: 20 mg Documented by:
[2021-04-06] MEDS: cefTRIAXone SODIUM 2,000 MG in DEXTROSE 5% 50 ML IV SCH (17:38)
--- NOTE | 2021-04-06 19:20 | Communication Note ---
Date of Service: April 06, 2021 Made aware by RN of uncontrolled blood pressure. SBP 1 40-1 70s since a.m. . Patient comfortable as per RN. AP Uncontrolled hypertension Patient home Coreg held by a.m. provider due to bronchospasm concerns Resume Coreg for now at low-dose of 3.125 mg twice daily Will relay to AM provider.
[2021-04-06] MEDS: ATORVASTATIN 40 MG TAB PO SCH (20:29)
[2021-04-06] MEDS: carvediloL 3.125 MG TAB PO SCH (20:29)
[2021-04-06] MEDS: INSULIN DETEMIR FLEXPEN/FLEX TOUCH 100 UNITS/ML 3ML SC SCH (21:35)
[2021-04-07] MEDS: INSULIN ASPART PER UNIT SC SCH ×6 (01:14→21:10)
[2021-04-07] MEDS: methylPREDNISolone 40 MG in SYRINGE 0 ML IV SCH ×3 (04:00→18:28)
[2021-04-07 05:26] LABS: Hematocrit (blood only) 42.6 % (37-47); Hemoglobin 14.1 g/dL (12.0-16.0); Mean Corpuscular Hemoglobin 30.7 pg (25-34); Mean Corpuscular Hgb Conc 33.1 g/dL (32-36); Mean Corpuscular Volume 92.8 fL (80-100); Mean Platelet Volume 10.3 fL (7.4-10.4); Platelet Count 312 K/uL (130-400); RDW Coefficient of Variation 14.9 % (11.5-14.5); RDW Standard Deviation 50.4 fL (36.4-46.3); Red Blood Count 4.59 M/uL (4.2-5.4); White Blood Count 15.86 K/uL (4.8-10.8)
[2021-04-07 05:41] LABS: Albumin Globulin Ratio 0.8 (0.9-2); Albumin Level 3.3 gm/dl (3.4-5.0); BUN Creatinine Ratio 28.8 (10-20); Bilirubin,Total 0.5 mg/dl (0.2-1); Calcium 9.1 mg/dl (8.5-10.1); Creatinine Clr Calc Pharmacy 116.5 ml/min; Est GFR (African American) 107.9 ml/min; Est GFR (Non-African American) 93.1 ml/min; Globulin 4.2 gm/dl (2.5-4.0); Total Protein 7.5 gm/dl (6.4-8.2)
[2021-04-07 06:23] LABS: Potassium 3.8 mmol/L (3.5-5.1)
[2021-04-07 07:19] LABS: Estimated Average Glucose 148 mg/dl; Hemoglobin A1C 6.8 % (4.5-5.6)
[2021-04-07] MEDS: amLODIPine BESYLATE 5 MG TAB PO SCH (09:17)
[2021-04-07] MEDS: CLOPIDOGREL BISULFATE 75 MG TAB PO SCH (09:17)
[2021-04-07] MEDS: ASPIRIN 325 MG ECTAB PO SCH (09:18)
[2021-04-07] MEDS: TORSEMIDE 20 MG TAB PO SCH (09:18)
[2021-04-07] MEDS: POTASSIUM CHLORIDE 10 MEQ TABCR PO SCH (09:19)
[2021-04-07] MEDS: lisinopril 20 MG TAB PO SCH (09:19)
[2021-04-07] MEDS: NICOTINE 21 MG/24 HR TDSY TD SCH ×2 (09:19→09:30)
[2021-04-07] MEDS: carvediloL 3.125 MG TAB PO SCH ×2 (09:19→21:15)
[2021-04-07] MEDS: EZETIMIBE 10 MG TABLET PO SCH (09:19)
[2021-04-07] MEDS: UMECLIDINIUM/VILANTEROL 62.5/25MCG 7 PUFFS/INHALER INH SCH (09:21)
[2021-04-07] MEDS: ENOXAPARIN INJ 40 MG/0.4 ML SYR SQ SCH (09:21)
--- NOTE | 2021-04-07 09:46 | Hospitalist Progress Note ---
Date of Service April 07, 2021 Assessment & Plan (1) COPD exacerbation: Plan: Was on BiPAP and was transitioned to nasal cannula at 4 L Does not require daytime oxygen at baseline Persistent wheezing and dyspnea with minimal exertion, no conversational dyspnea on my exam today Continue IV steroids, bronchodilators and Rocephin. She remains afebrile and no pneumonia on chest x-ray -Smoking cessation encouraged at bedside, she continues to smoke 1 pack daily and has since being in the eighth grade. -Continue Stiolto inhaler, hold Combivent (2) Acute respiratory failure with hypoxia: Plan: -Secondary to above, plan as outlined above (3) Tobacco use disorder: Plan: -Cessation encouraged at bedside, smokes 1 pack/day times ~50+ years, nicotine patch (4) Chronic diastolic (congestive) heart failure: Plan: compensated, cont Lasix, aspirin, atorvastatin, amlodipine - Resume Coreg (5) Diabetes mellitus, type 2: Plan: -ISS with Accu-Cheks ACHS, continue Levemir 20 units at bedtime, takes Ozempic once a week on Mondays. Cont basal bolus insulin while hospitalized. (6) Hypertension: Plan: Blood pressure slightly elevated, Resume Coreg to avoid bronchospasm. (7) DVT prophylaxis: Plan: Full code Lovenox Disposition-to home when medically stable Admission and Anticipated Discharge Date Admission Date: April 05, 2021 Anticipated date of discharge: 04/10/21 Subjective Patient seen in her room, was walking around the bed at the time, currently holding in the ICU as a PCU telemetry patient, says she feels a little bit better than when she came in. Physical Exam Physical Exam: ROS-No Headache, No Visual Changes, No Nausea, No Vomiting, No Fever, No Chills, No Neck Pain or Stiffness, No Chest Pain, No Palpitations, positive SOB, positive BRAND, positive cough, positive wheezing, no Sputum, No Abdominal Pain, No Diarrhea, No Hematemesis, No Hemoptysis, No Unexpected Weight Loss, No Flank pain, No Melena, No Hematochezia, No Frequency, No Urgency, No Burning, No Hematuria, No Rashes, No Diaphoresis. Appetite is Normal Physical Exam Gen-AAO x 3, NAD, Afebrile, obese Head-NCAT, EOMI, PERRLA, Anicteric Sclera, No Posterior Pharyngeal Erythema Neck-Supple, No JVD, No Thyromegaly, No Masses, No LAD, No Bruits Lungs-positive wheezing bilaterally, No Rales, No Rhonchi, No Crepitus Chest-No S4, +S1, +S2, No S3, No Murmurs, No Rubs, No Gallops, No Ectopy Abdomen-Soft, Bowel Sounds Present, obese, Non Tender, Non Distended, No Hepatomegaly, No Splenomegaly, No Palpable Masses, No Rebound, No Rigidity, No Guarding Musculoskeletal-Full Range of Motion Bilaterally, No CVAT Extremities-No Cyanosis, No Clubbing, No Edema Nuero-Cranial Nerves II-XII grossly intact, Motor WNL, DTRs WNL, Strength WNL, Non Focal Psych-Normal Mood Results & Data Results & Data ([facility]) Vital Signs (Past 12 Hours) Vital Signs Temp Pulse Pulse Resp BP BP BP 04/07/21 08:17 36.6 C 101 H 20 168/90 H 04/07/21 04:00 36.5 C 103 H 20 149/63 H 04/07/21 00:37 95 H 04/07/21 00:13 134/70 04/07/21 00:00 36.6 C 90 17 04/06/21 22:00 107 H 20 Pulse Ox 04/07/21 08:17 94 04/07/21 04:00 94 04/07/21 00:37 04/07/21 00:13 04/07/21 00:00 95 04/06/21 22:00 95 Laboratory Results Labs were reviewed Diagnostic Findings Chest x-ray revealed no cardiopulmonary abnormality
[2021-04-07] MEDS ORDERED: carvediloL 3.125 MG TAB PO SCH (10:00)
--- NOTE | 2021-04-07 10:00 | Pharmacy Report ---
Pharmacy Glycemic Short Note 2 - Date of Service April 07, 2021 - Glycemic Short BSG Results (Last 24 hours): 04/06/21 04/06/21 04/06/21 13:09 17:48 20:35 Glucose POC Glucose 193 H 140 H 90 04/07/21 04/07/21 04/07/21 01:07 04:14 04:37 Glucose 152 H POC Glucose 159 H 149 H 04/07/21 07:20 Glucose POC Glucose 137 H OUTPATIENT ANTIDIABETIC REGIMEN: * Levemir 26 units HS * Novolog 30 units with lunch and dinner * metformin 1000 mg PO BIDM * Ozempic 1 mg SQ weekly ASSESSMENT: 04/07/20 * Pt has received 65 units of insulin over the past 24hrs * 20 units of basal with Levemir * 45 units of bolus with NovoLog * BSGs [id number] mg/dl * BSGs trending downwards nicely with current insulin orders. Pt did require 5 units of extra correctional insulin overnight, will add this to basal insulin order. * Solumedrol continues at 40mg IV Q8hrs - CF/CR will need loosened with each step down in steroid dosing. 04/06/21 * BSGs yesterday were 186-201-256 mg/dL. Patient did not receive any insulin until HS for unknown reasons. Then received 26 units of Levemir (home dose) plus 12 units of Novolog. * Fasting BSG was 212 mg/dL. * Steroids increased to Solu-Medrol 40 mg IV q8 hours. * Tighten Novolog due to this steroid increase. Hesitant to increase Levemir as documented below. * Overnight checks to ensure 24 hour coverage. Background * Ms Simmons is a 65 y/o F with a PMH of T2DM who presents with difficulty breathing. * Patient started on Solu-Medrol 60 mg IV x 1 then 40 mg IV q12 hours. * Per previous patient data, patient is very sensitive to steroids but once steroids are discontinued, insulin requirements drastically decrease. * Start with home dose of Levemir. Per nurse, patient has poor PO intake right now. If BSG < 140 mg/dL then reduce Levemir by 20%. * Novolog with CF 10 CR of 4 based upon previous hospital data. PLAN FOR INPATIENT GLYCEMIC CONTROL: * Hold outpatient oral diabetes medications * Basal insulin * Lantus 26 units SQ HS (If bsg < 140 mg/dL Lantus 22 units) * Bolus insulin * NovoLog per scale ACHS or Q6hrs while NPO * Goal Range: Low 110 mg/dL - High 140 mg/dL * Correction Factor: 8 mg/dL/unit * Nutritional / Prandial insulin per carb ratio of 1 unit per 3 grams CHO consumed PLAN FOR DISCHARGE: * HbA1C = 6.8% * A1c is in goal range. No changes needed to outpatient regimen at [place]
[2021-04-07] MEDS ORDERED: Nursing to Pharmacy Communication SCH (10:45)
[2021-04-07] MEDS: cefTRIAXone SODIUM 2,000 MG in DEXTROSE 5% 50 ML IV SCH (17:00)
[2021-04-07] MEDS: INSULIN DETEMIR FLEXPEN/FLEX TOUCH 100 UNITS/ML 3ML SC SCH (21:12)
[2021-04-07] MEDS: ATORVASTATIN 40 MG TAB PO SCH (21:15)
[2021-04-08] MEDS: methylPREDNISolone 40 MG in SYRINGE 0 ML IV SCH ×2 (02:55→12:05)
[2021-04-08 06:31] LABS: Hematocrit (blood only) 45.5 % (37-47); Hemoglobin 15.4 g/dL (12.0-16.0); Mean Corpuscular Hemoglobin 30.7 pg (25-34); Mean Corpuscular Hgb Conc 33.8 g/dL (32-36); Mean Corpuscular Volume 90.8 fL (80-100); Mean Platelet Volume 10.3 fL (7.4-10.4); Platelet Count 257 K/uL (130-400); RDW Coefficient of Variation 14.4 % (11.5-14.5); RDW Standard Deviation 48.5 fL (36.4-46.3); Red Blood Count 5.01 M/uL (4.2-5.4); White Blood Count 14.21 K/uL (4.8-10.8)
[2021-04-08 07:19] LABS: Albumin Globulin Ratio 0.8 (0.9-2); Albumin Level 3.4 gm/dl (3.4-5.0); BUN Creatinine Ratio 32.2 (10-20); Bilirubin,Total 0.3 mg/dl (0.2-1); Calcium 8.9 mg/dl (8.5-10.1); Creatinine Clr Calc Pharmacy 157.2 ml/min; Est GFR (African American) 119.4 ml/min; Globulin 4.1 gm/dl (2.5-4.0); Potassium 3.9 mmol/L (3.5-5.1); Total Protein 7.5 gm/dl (6.4-8.2)
[2021-04-08] MEDS: TORSEMIDE 20 MG TAB PO SCH (08:43)
[2021-04-08] MEDS: ASPIRIN 325 MG ECTAB PO SCH (08:43)
[2021-04-08] MEDS: CLOPIDOGREL BISULFATE 75 MG TAB PO SCH (08:43)
[2021-04-08] MEDS: UMECLIDINIUM/VILANTEROL 62.5/25MCG 7 PUFFS/INHALER INH SCH (08:43)
[2021-04-08] MEDS: lisinopril 20 MG TAB PO SCH (08:43)
[2021-04-08] MEDS: carvediloL 3.125 MG TAB PO SCH (08:44)
[2021-04-08] MEDS: amLODIPine BESYLATE 5 MG TAB PO SCH (08:44)
[2021-04-08] MEDS: EZETIMIBE 10 MG TABLET PO SCH (08:45)
[2021-04-08] MEDS: ENOXAPARIN INJ 40 MG/0.4 ML SYR SQ SCH (08:45)
[2021-04-08] MEDS: NICOTINE 21 MG/24 HR TDSY TD SCH (08:46)
[2021-04-08] MEDS: INSULIN ASPART PER UNIT SC SCH ×2 (08:46→12:06)
[2021-04-08] MEDS: POTASSIUM CHLORIDE 10 MEQ TABCR PO SCH (08:55)
--- NOTE | 2021-04-08 13:33 | Discharge Summary ---
Date of Service April 08, 2021 Admission HPI Per Admitting Provider This is a 65-year-old female with PMHx of COPD, chronic diastolic CHF, DM type II, HTN, HLD, sleep apnea, chronic tobacco use since she was 18 years old and currently uses 1 ppd. She uses Bipap with 7 L O2 HS routinely at home. She presents with acute shortness of breath via EMS. She states that this has been going on and getting worse for approximately 48 hours. Patient reports that she just could not breathe this morning so called EMS. She admits to bringing up large amounts of sputum production but cannot characterize it to me. She denies any fevers, chills or sweats. She continues to smoke. Lives at home with 2 daughters. She was found to be 70% on room air by EMS, now has been placed on BiPAP after completing a 1 hour-long neb, receiving Solu-Medrol, with good improvement. Her Covid and RSV swab are negative. Admission Exam Per Admitting Provider General: awake, alert, no apparent distress, + obese with BMI 47.7 Head: Normocephalic, atraumatic ENT: PERRL, EOMI, no pharyngeal exudate, mucous membranes moist Chest: On BiPAP, breath sounds with moderate wheezing throughout, no rales or rhonchi Cardiac: Regular rate and rhythm, no murmur, no JVD, normal peripheral pulses, good capillary refill Abdominal: NABS x 4 quadrants, soft, nondistended, nontender to palpation, no rebound or guarding Extremities: + Chronic venous stasis changes, normal inspection, no peripheral edema or erythema, calfs nontender to palpation Psych: Normal mood and affect Neuro: AAO x 3, strength intact bilaterally and rated 5/5, no motor deficits, speech is clear, no peripheral sensory deficits Principal Diagnosis COPD flare Discharge Exam ROS-No Headache, No Visual Changes, No Nausea, No Vomiting, No Fever, No Chills, No Neck Pain or Stiffness, No Chest Pain, No Palpitations, positive SOB, positive BRAND, positive cough, positive wheezing, no Sputum, No Abdominal Pain, No Diarrhea, No Hematemesis, No Hemoptysis, No Unexpected Weight Loss, No Flank pain, No Melena, No Hematochezia, No Frequency, No Urgency, No Burning, No Hematuria, No Rashes, No Diaphoresis. Appetite is Normal, Feels like she's at baseline Physical Exam Gen-AAO x 3, NAD, Afebrile, obese Head-NCAT, EOMI, PERRLA, Anicteric Sclera, No Posterior Pharyngeal Erythema Neck-Supple, No JVD, No Thyromegaly, No Masses, No LAD, No Bruits Lungs-positive wheezing bilaterally-At Baseline, No Rales, No Rhonchi, No Crepitus Chest-No S4, +S1, +S2, No S3, No Murmurs, No Rubs, No Gallops, No Ectopy Abdomen-Soft, Bowel Sounds Present, obese, Non Tender, Non Distended, No Hepatomegaly, No Splenomegaly, No Palpable Masses, No Rebound, No Rigidity, No Guarding Musculoskeletal-Full Range of Motion Bilaterally, No CVAT Extremities-No Cyanosis, No Clubbing, No Edema Nuero-Cranial Nerves II-XII grossly intact, Motor WNL, DTRs WNL, Strength WNL, Non Focal Psych-Normal Mood Discharge Data Allergies Allergy/AdvReac Type Severity Reaction Status Date / Time No Known Allergies Allergy NONE Verified 11/11/19 10:39 Consultations 04/05/21 11:05 ED Decision to Admit Stat Hospital Course (1) COPD exacerbation: Was on BiPAP and was transitioned to nasal cannula at 4 L Does not require daytime oxygen at baseline, but notes she's on 7L at bedtime At baseline wheezing and dyspnea, no conversational dyspnea on my exam today DC home on a steroid taper, bronchodilators and Omnicef. She remains afebrile and no pneumonia on chest x-ray -Smoking cessation encouraged at bedside, she continues to smoke 1 pack daily and has since being in the eighth grade. -Continue Stialto inhaler, hold Combivent (2) Acute respiratory failure with hypoxia: -Secondary to above, plan as outlined above (3) Tobacco use disorder: -Cessation encouraged at bedside, smokes 1 pack/day times ~50+ years, nicotine patch (4) Chronic diastolic (congestive) heart failure: compensated, cont Lasix, aspirin, atorvastatin, amlodipine - Resume Coreg (5) Diabetes mellitus, type 2: -ISS with Accu-Cheks ACHS, continue Levemir 20 units at bedtime, takes Ozempic once a week on Mondays. Cont basal bolus insulin while hospitalized. (6) Hypertension: Blood pressure slightly elevated, Resume Coreg to avoid bronchospasm. (7) DVT prophylaxis: Full code Lovenox Disposition-to home today Total Time Total Time Spent Total Time Spent (In Minutes): 45 mins Total Time Includes: Examination of the Patient, Discharge Planning, Medication Reconciliation and Communication With Other Providers Discharge Plan Discharge Items Patient Disposition: Home - Self-Care Reason For Visit: COPD EXACERBATION Discharge Diagnosis: COPD exacerbation Condition on Discharge: Good Activity: Resume your previous activity Lifting: Gradually increase as tolerated Bathing: No limitations Sexual Activity: When tolerated Exercise/Sports: Gradually increase as tolerated Driving/Machine Use: No limitations Weightbearing: Full weightbearing Non-emergency contact: Primary Care Provider Call non-emergency contact if: you have any medication questions Follow-up/Referrals: Олег Damico MD [Physician] - (Date & Time 04/14/2021 10:20 AM Provider Marilu Holt MD Department General Internal Medicine [facility] ) Diet: Carb Consistent or DM2 and Heart Healthy Addtl Attending Provider Instructions: None Pending Studies at Discharge: No Stand-Alone Forms: My [employer], Smoking Cessation Medications and DC Order Prescriptions: New carvedilol 3.125 mg Tablet 3.125 mg PO BID Qty: 60 RF: 0 acetaminophen 325 mg Tablet 650 mg PO Q4H PRN (Reason: fever or pain) Qty: 90 RF: 0 prednisone 10 mg tablet 10 mg PO DAILY Qty: 42 RF: 0 cefdinir 300 mg capsule 300 mg PO Q12H 10 Days Qty: 14 RF: 0 Continued aspirin 325 mg tablet,delayed release (DR/EC) 325 mg PO QAM RF: 0 atorvastatin 80 mg tablet 80 mg PO HS RF: 0 insulin aspart U-100 [Novolog U-100 Insulin aspart] 100 unit/mL solution See Rx Instructions .ROUTE .COMPLEX RF: 0 ipratropium-albuterol [Combivent Respimat] 20-100 mcg/actuation mist 2 puffs INH Q4H PRN (Reason: shortness of breath) RF: 0 lisinopril 20 mg tablet 40 mg PO QAM RF: 0 metformin 1,000 mg tablet 1,000 mg PO BID RF: 0 potassium chloride 10 mEq capsule, extended release 10 meq PO QAM RF: 0 torsemide 20 mg tablet 20 mg PO QAM RF: 0 insulin detemir U-100 [Levemir U-100 Insulin] 100 unit/mL solution 26 units SQ HS RF: 0 Stiolto Respimat 2.5-2.5 mcg/actuation mist 2 inh inhalation DAILY Qty: 3 RF: 3 clopidogrel [Plavix] 75 mg tablet 75 mg PO QAM RF: 0 cyanocobalamin (vitamin B-12) 1,000 mcg capsule 1,000 mcg PO DAILY RF: 0 ezetimibe 10 mg tablet 10 mg PO QAM RF: 0 amlodipine 2.5 mg tablet 2.5 mg PO DAILY RF: 0 Ozempic 1 mg/dose (4 mg/3 mL) pen injector 1 mg SUBCUT WK RF: 0 Discontinued carvedilol 25 mg tablet 37.5 mg PO BID RF: 0 Discharge Orders: Discharge Order (Routine); Ordered 04/08/21 Ordered By: Tian Hernandes/Other Patient Handouts: Managing Type 2 Diabetes Admission Data Admit Date/Time: 04/05/21 11:28 Attending Provider: Tian Marion Admit Provider: Faviola Campbell Primary Care Provider: Jeremie Mcclellan Other Providers: Nighat Barron
[2021-04-09] MEDS ORDERED: INSULIN ASPART PER UNIT SC SCH
== END 2021-04-08 15:08 | disposition home or self-care (01) | DRG 189 ==
LOC: ED 09:25 → EDINP 11:28 → SUATTDRO 11:28 → 1E 13:14 → 2S 04-07 21:35